=== PATIENT | male | born 1990 | race African-American/Black ===

== ENCOUNTER 2022-06-10 21:34 | Inpatient (IN) | payer OTHER, MEDICAID, SELFPAY ==
[2022-06-10] VITALS (8 sets, daily range): BP systolic 139–153; BP diastolic 88–125; PULSE 96–101; RESP 21–29; O2SAT 95–99
--- NOTE | ~2022-06-10 | CT_ITS ---
EXAMINATION: CTA brain carotid DATE: 06/10/2022 22:20 INDICATION: Left hemiparesis. TECHNIQUE: Computed tomographic angiography (CTA) of the head was performed without and with 100 mL O mnipaque-350 intravenous contrast. CTA of the neck was performed with intravenous contrast. Automated exposure control and iterative reconstruction technique were employed. The dose-length product was 1 779.51 mGy-cm. Maximum intensity projection and volume rendered 3D-reconstructions were created by rashad cannon technologist on a separate workstation. COMPARISON: Brain MRI 06/11/2022 FINDINGS: HEAD CTA: There is no intracranial hemorrhage, acute infarction, or abnormal intracranial mass lesion . The ventricles are normal in size. There is a mucous retention cyst in left maxillary sinus. The ma stoid air cells are normal. The orbits are normal. The vertebral arteries are codominant. There is no significant stenosis of basilar artery or the posterior cerebral arteries. There is no significant s tenosis of the intracranial internal carotid arteries or anterior cerebral arteries. There is total o cclusion of a right M2 middle cerebral artery with hyperdense thrombus. The anterior communicating ar danny is normal. The posterior communicating arteries are normal. There is no aneurysm. NECK CTA: The lung apices demonstrate mild atelectasis. There is mild mediastinal lymphadenopathy, li sherita reactive. There is no significant stenosis of the vertebral arteries. There is no visible plaque in the proximal internal carotid arteries. There is 0% stenosis of the proximal right internal carot id artery relative to normal distal artery lumen diameter (NASCET criteria). There is 0% stenosis of the proximal left internal carotid artery relative to normal distal artery lumen diameter. The bones are unremarkable. IMPRESSION: 1. Acute thrombosis of a right M2 middle cerebral artery. No infarct visible at this time. 2. 0% stenosis of the proximal internal carotid arteries relative to normal distal artery lumen diame ters (NASCET criteria). Reviewed, dictated and finalized at location E. BROILER OR FRY IMPRESSION: 1. Acute thrombosis of a right M2 middle cerebral artery. No infarct visible at this time. 2. 0% stenosis of the proximal internal carotid arteries relative to normal dis ivania artery lumen diameters (NASCET criteria).
--- NOTE | ~2022-06-10 | MR_ITS ---
EXAMINATION: MR brain/brain stem wo/w con DATE: 06/11/2022 08:41 INDICATION: Cerebral vascular accident. TECHNIQUE: Magnetic resonance imaging (MRI) of the brain and brainstem was performed without and with 20 mL MultiHance intravenous contrast. COMPARISON: Head CT 06/10/2022 FINDINGS: There is acute infarct involving the right insula and right frontoparietal region. There is no intracranial hemorrhage or abnormal mass lesion. The ventricles are normal in size. The orbits ar e normal. The paranasal sinuses are clear. The mastoid air cells are normal. IMPRESSION: 1. Acute infarct involving the right insula and right frontoparietal region. Reviewed, dictated and finalized at location E. ES' REGISTRY DIRECTOR
--- NOTE | ~2022-06-10 | XR_ITS ---
XR chest 1V DATE: 06/10/2022 22:16 INDICATION: Stroke. Left facial droop, slurred speech. TECHNIQUE: AP chest COMPARISON: None FINDINGS: There is enlargement of the cardiac silhouette which may be due to cardiomegaly/cardiac juanito malcolm and/or pericardial effusion. Mild infiltrate or atelectasis is suggested in the lower lung zones. The lungs otherwise appear clear . No pleural effusion or pulmonary vascular congestion or pneumothorax is detected. IMPRESSION: Enlarged cardiac silhouette which may be due to cardiomegaly, cardiomyopathy and/or peric ardial effusion Minimal infiltrate or atelectasis is suggested in the lower lung zones Reviewed, dictated and finalized at location A. PAPER INSPECTOR IMPRESSION: Enlarged cardiac silhouette which may be due to cardiomegaly, cardi omyopathy and/or pericardial effusion Minimal infiltrate or atelectasis is suggested in the lower lung zones
--- NOTE | ~2022-06-10 | US_ITS ---
US renal BI DATE: 06/11/2022 08:57 INDICATION: Acute renal insufficiency TECHNIQUE: Real-time and color flow imaging of the kidneys and urinary bladder COMPARISON: None FINDINGS: Right kidney measures approximately 9.9 cm length, left kidney 10.3 cm. No renal mass lesio n or hydronephrosis is evident. The urinary bladder is unremarkable. IMPRESSION: No significant abnormality Reviewed, dictated and finalized at Location A. Reviewed, dictated and finalized at location A. ICATIONS PROGRAMMER ANALYST IMPRESSION: No significant abnormality
--- NOTE | 2022-06-10 21:39 | ECG_ITS ---
Measurements Intervals [place] Rate: 94 P: 74 WY: 178 QRS: -58 QRSD: 130 T: 81 QT: 389 QTc: 487 Interpretive Statements SINUS RHYTHM LEFT ATRIAL ENLARGEMENT [-0.15mV P-WAVE IN V1/V2] LEFT ANTERIOR FASCICULAR BLOCK [QRS AXIS <= -45, QR IN I, RS IN II] POSSIBLE LEFT VENTRICULAR HYPERTROPHY [VOLTAGE CRITERIA PLUS LAE OR QRS WIDENING] POOR R-WAVE PROGRESSION NO PREVIOUS ECG AVAILABLE FOR COMPARISON Electronically Signed On 06-11-2022 8:27:51 NEEDLE GRADER by Ronna Burrows M.D.
--- NOTE | 2022-06-10 21:43 | ED.GENADULT ---
HPI - General Adult General Chief complaint: Neuro Symptoms/Deficit Stated complaint: left sided numbness History of Present Illness HPI narrative: 32-year-old male history of hypertension heart failure presenting ED with stroke-like symptoms. Last known normal was 9:00 p.m. tonight. Patient started to have left-sided facial droop slurred speech and numbness of the left hand. EMS was then called he was brought to the hospital. At this time the patient states that his left hand has and left portion of his face have decreased sensation. Patient's symptoms are improving. Related Data Home Medications Medication Instructions Recorded Confirmed aspirin 81 mg tablet,delayed mg 06/10/22 release furosemide 40 mg tablet mg 06/10/22 lisinopril 5 mg tablet mg 06/10/22 metoprolol succinate 25 mg mg PO 06/10/22 tablet,extended release 24 hr Allergies Allergy/AdvReac Type Severity Reaction Status Date / Time No Known Allergies Allergy Verified 06/10/22 21:35 [facility] Past Medical History Medical History CHF (congestive heart failure) Hypertension Social History Social History Social History: denies use of drugs alcohol tobacco. Exam Narrative: APPEARANCE: No apparent distress. Head: atraumatic. EYES: EOMI, NOSE: Atraumatic NECK: Trachea midline RESPIRATORY: No increased rate of breathing CARDIOVASCULAR: RRR, ABDOMINAL: Non-distended MUSCULOSKELETAl: No obvious deformities NEURO: Alert. Minor drift in the left arm, decreased sensation in the left face and left hand, some inattention to the left hand SKIN:: Warm, dry. Normal color PSYCHIATRIC: Normal affect NIH Stroke Scale/Score (NIHSS) from [email or web address] on 06/10/2022 All calculations should be rechecked by clinician prior to use RESULT SUMMARY: 4 points NIH Stroke Scale INPUTS: 1A: Level of consciousness ?> 1 = Arouses to minor stimulation 1B: Ask month and age ?> 0 = Both questions right 1C: 'Blink eyes' & 'squeeze hands' ?> 0 = Performs both tasks 2: Horizontal extraocular movements ?> 0 = Normal 3: Visual bobby ?> 0 = No visual loss 4: Facial palsy ?> 0 = Normal symmetry 5A: Left arm motor drift ?> 1 = Drift, but doesn't hit bed 5B: Right arm motor drift ?> 0 = No drift for 10 seconds 6A: Left leg motor drift ?> 0 = No drift for 5 seconds 6B: Right leg motor drift ?> 0 = No drift for 5 seconds 7: Limb Ataxia ?> 0 = No ataxia 8: Sensation ?> 1 = Mild-moderate loss: less sharp/more dull 9: Language/aphasia ?> 0 = Normal; no aphasia 10: Dysarthria ?> 0 = Normal 11: Extinction/inattention ?> 1 = Visual/tactile/auditory/spatial/personal inattention While initial stroke scale was 4, it rapidly improved to 1 with some left-sided sensory deficits. Course Vital Signs Vital signs: Vital Signs Pulse Rate 101 H 06/10/22 21:34 Respiratory Rate 22 H 06/10/22 21:34 Blood Pressure 153/96 H 06/10/22 21:34 Pulse Oximetry 98 06/10/22 21:34 Pulse Rate 101 H 06/10/22 21:34 Respiratory Rate 22 H 06/10/22 21:34 Blood Pressure 153/96 H 06/10/22 21:34 Pulse Oximetry 98 06/10/22 21:34 Medical Decision Making MDM Narrative Medical decision making narrative: -Presentation: 32-year-old male presenting to ED with stroke-like symptoms. The patient initially had left-sided facial droop, left arm weakness and left-sided numbness his symptoms had started to improve. He no longer has facial droop or weakness although he still has some numbness in the left arm. -DDX includes but is not limited to: CVA, vertebral artery dissection -Co-morbidities complicating care: hypertension, heart failure -Social determinants of health: -External Chart Review: none -Hx from independent Sources: none -Discussion of Management/Consultants: neurology-Carla Sparks - Hospitalist -Independent interpretati
[2022-06-10 22:04] LABS: Estimated CRCL calculation 91 ml/min; Estimated Glomerular Filt Rate > 60
[2022-06-10 22:32] LABS: Basophils Absolute Auto 0.1 K/mm3 (0.0-0.1); Basophils Percent Auto 0.9 % (0.2-1.2); Eosinophils Absolute Auto 0.1 K/mm3 (0-0.3); Eosinophils Percent Auto 1.6 % (0-4.4); Hematocrit 46.3 % (42.0-52.0); Hemoglobin 15.1 g/dL (14.0-18.0); Immature Granulocyte Absolute 0.02 K/mm3 (0.00-0.031); Immature Granulocyte Percent A 0.3 % (0-0.5); Lymphocytes Absolute Auto 2.67 K/mm3 (0.9-3.2); Lymphocytes Percent Auto 34.5 % (18.3-44.2); Mean Corpuscular HGB Conc 32.6 g/dl (32-36); Mean Corpuscular Hemoglobin 26.2 pg (26-34); Mean Corpuscular Volume 80.2 fl (80-100); Mean Platelet Volume 10.3 fl (7.4-10.4); Monocytes Absolute Auto 0.6 K/mm3 (0.1-0.6); Monocytes Percent Auto 7.2 % (2.6-8.5); Neutrophils Absolute Auto 4.3 K/mm3 (1.3-6.7); Neutrophils Percent Auto 55.5 % (45.5-73.1); Platelet Count Result 291 k/mm3 (150-375); Red Blood Count 5.77 M/mm3 (4.6-6.20); Red Cell Distribution Width 16.7 % (11.5-14.5); White Blood Count 7.7 K/mm3 (4.5-10.0)
[2022-06-10 22:43] LABS: INR 1.3; Prothrombin Time 15.8 Seconds (11.1-14.7)
[2022-06-10 22:44] LABS: Partial Thromboplastin Time 26.5 SECONDS (22.3-36.8)
[2022-06-10 22:45] LABS: Glucose Point of Care 146 mg/dl (65-105)
[2022-06-10 22:53] LABS: Alanine Aminotransferase 32 U/L (6-50); Albumin Level 3.5 g/dL (3.5-5.1); Alkaline Phosphatase 70 U/L (38-126); Anion Gap 7 mmol/L (8-16); Aspartate Amino Transferase 35 U/L (17-59); Bilirubin,Total 1.3 mg/dL (0.2-1.3); Blood Urea Nitrogen 18 mg/dL (9-20); Calcium 8.5 mg/dL (8.4-10.2); Carbon Dioxide 23 mmol/L (22-30); Chloride 102 mmol/L (98-107); Estimated CRCL calculation 85 ml/min; Estimated Glomerular Filt Rate > 60; Glucose 123 mg/dL (65-110); Potassium 3.4 mmol/L (3.4-5.0); Sodium 132 mmol/L (137-145)
[2022-06-10 22:54] LABS: Ethanol < 10 mg/dL (<10)
[2022-06-10 23:04] LABS: Troponin I < 0.012 ng/mL (0.000-0.034)
--- NOTE | 2022-06-10 23:13 | PM.IMHP ---
H&P: HPI History of Present Illness Date/Time: 06/10/22 23:13 Chief Complaint: Left-sided weakness Narrative: This is a 32-year-old male with past medical history significant for congestive heart failure. Patient presents to the emergency room due to left-sided weakness present in his left upper extremity. Patient has been his usual state of health although complains of worsening of bilateral lower extremity swelling had been to see his radio communication coordinator 2 days ago and no changes were made to his current medications. Patient denies any vision changes, any headaches, no nausea, no vomiting, no syncope, no near syncope, no lightheadedness, no vertigo, he had some speech disturbance as well at the time that this episode took place. Preliminary workup was significant for a CT angiogram of head and neck was reported by stat rad as: MCA territory acute infarct patient declined tPA and because his score in the NIHN was below 6 a stroke team from [facility] did not feel strong about intervention. Patient has been placed in observation for further evaluation management and treatment. Review of Systems Review of Systems: Left upper extremity weakness, speech disturbance. Constitutional: Constitutional: Denies chills, Denies fatigue, Denies fever(s), Denies lethargy, Denies malaise, Denies night sweats, Denies poor appetite, Denies weakness, Reports weight gain and Reports other (Worsening swelling of bilateral lower extremities) Eyes: Eyes: Denies change in vision ENT: Denies dysphagia, Denies vertigo, Denies dizziness and Denies odynophagia Cardiovascular: Cardiovascular: Denies chest pain, Denies irregular heart rhythm, Reports leg edema and Reports dyspnea on exertion Respiratory: Respiratory: Denies chest congestion, Denies cough, Denies pain on inspiration and Reports wheezing Gastrointestinal: Gastrointestinal: Denies abdominal pain, Denies dyspepsia, Denies heartburn, Denies diarrhea, Denies nausea and Denies vomiting Genitourinary: Genitourinary: Denies dysuria Musculoskeletal: Musculoskeletal: Denies back pain, Denies joint swelling and Denies muscle weakness Integumentary/Breasts: Skin/Breast: Denies rash Neurologic: Reports Abnormal speech present, Reports focal weakness (Left upper extremity) and Reports numbness (Left hand) Psychiatric: Psychiatric: Reports no additional psychiatric complaints and Reports as per HPI Endocrine: Endocrine: Denies cold intolerance, Denies flushing, Denies heat intolerance, Denies polyphagia, Denies polydipsia and Denies palpitations Hematologic/Lymphatic: Hematologic/Lymphatic: Reports no additional hematologic/lymphatic complaints and Reports as per HPI Allergic/Immunologic: Allergic/Immunologic: Reports no additional allergic/immunologic complaints and Reports as per HPI PMFSH Past Medical History Medical History CHF (congestive heart failure) Hypertension Social History Social History Social History: denies use of drugs alcohol tobacco. Meds Home Medications and Allergies Home Medications Medication Instructions Recorded Confirmed Type aspirin 81 mg tablet,delayed mg 06/10/22 History release furosemide 40 mg tablet mg 06/10/22 History lisinopril 5 mg tablet mg 06/10/22 History metoprolol succinate 25 mg mg PO 06/10/22 History tablet,extended release 24 hr Allergies Allergy/AdvReac Type Severity Reaction Status Date / Time No Known Allergies Allergy Verified 06/10/22 21:35 Vital Signs Vital Signs - 24 hr 06/10/22 21:34 06/10/22 22:37 06/10/22 22:31 Pulse Rate 101 H 101 H 96 Respiratory Rate 22 H 22 H 29 H Blood Pressure 153/96 H 153/96 H 140/88 Pulse Oximetry 98 99 97 06/10/22 21:35 Pulse Rate 101 H Respiratory Rate Blood Pressure Pulse Oximetry Exam Narrative: Patient is sitting in the stretcher Const:
[2022-06-10] MEDS: ASPIRIN 81 MG CHEWABLE TABLET 324 MG PO (23:27)
[2022-06-10 23:54] LABS: Amphetamine Screen Urine Negative (Negative); Barbiturate Screen Urine Negative (Negative); Benzodiazepines Screen Urine Negative (Negative); Cannabinoid Screen Urine Negative (Negative); Cocaine Screen Urine Negative (Negative); Methadone Screen Urine Negative (Negative); Opiate Screen Urine Negative (Negative); Phencyclidine Screen Urine Negative (Negative)
[2022-06-11] VITALS (16 sets, daily range): BP systolic 125–150; BP diastolic 86–124; PULSE 78–99; RESP 16–29; TEMP 36.1–37.1; O2SAT 95–100; BMI 38.4
[2022-06-11 00:08] LABS: Mucus Urine Rare /lpf; RBC Urine 0-2 /hpf (0-2); WBC Urine 0-3 /hpf
[2022-06-11 00:11] LABS: Appearance Urine Clear (Clear); Bilirubin Urine Negative (Negative); Blood Urine Trace-intact (Negative); Color Urine Yellow (Yellow); Glucose Urine UA Negative (Negative); Ketones Urine Negative (Negative); Leukocyte Esterase Ur Negative LEU/UL (Negative); Nitrate Urine Negative (Negative); Protein Urine 2+ mg/dL (Negative)
[2022-06-11 00:12] LABS: Add Urine Microscopic? YES
--- NOTE | 2022-06-11 01:45 | PC.NURSE ---
This patient, Ramón Santana, was admitted to Medical Room 253-01. Patient/family oriented to hospital policies and general routines including ID bracelet, bed and alarms, visiting hours, pain management, procedures, bathroom and other care routines, personal items, smoking policy, room service/diet, and visiting hours. Information on how to activate the Rapid Response Team has been discussed. Patient/Family are encouraged to report perceived risks to care and to ask questions if they do not understand what they are told or what they should do.
[2022-06-11] MEDS: FUROSEMIDE INJ 100 MG/10 ML VIAL 80 MG IV PUSH (02:30)
--- NOTE | 2022-06-11 08:21 | PM.IMPN ---
Progress Note: A&P Assessment and Plan (1) Acute CVA (cerebrovascular accident): Code(s): I63.9 - Cerebral infarction, unspecified Status: Acute Assessment and Plan: CTA head/neck show occlusion of M2 MCA and MRI brain with acute infarct to right insula and right frontoparietal region. Treated with ASA 325 mg PO x1 in ED. Continued on ASA 81 mg PO daily. Permissive hypertension first 24 hours, resume lisinopril and metoprolol in am. Monitor telemetry- SR with occasional asymptomatic runs of VT, no afib/flutter. Give plavix 300 mg PO x1, then start 75 mg daily. Continue lipitor 40 mg daily. LDL 93, HDL 41, triglycerides 101. Echo with bubble study pending. A1c 6.2% prediabetes. May benefit from starting metformin for management given acute stroke. apoB pending (2) CHF (congestive heart failure): Code(s): I50.9 - Heart failure, unspecified Status: Acute Assessment and Plan: Echocardiogram pending. Patient with some edema present in bilateral lower extremities Continue to diurese- give 40 mg IV lasix x1 and 60 mEQ KCl x1 PO. Daily intake and output Daily BMP Daily weights. Elevate BLE (3) Hypertension: Code(s): I10 - Essential (primary) hypertension Status: Chronic Assessment and Plan: Chronic, BP l131/86. May resume lisinopril and metoprolol in the morning. (4) APRIL (acute kidney injury): Code(s): N17.9 - Acute kidney failure, unspecified Status: Acute Assessment and Plan: BUN and creatinine elevated. Unknown prior baseline continue diuresis. Resume lisinopril in am. Daily intake and output Renal ultrasound negative. (5) Prediabetes: Code(s): R73.03 - Prediabetes Status: Acute Assessment and Plan: A1c 6.2%. Monitor serum glucose. diet and lifestyle modifications. Plan CODE STATUS: FULL CODE Disposition: from home. Discharge tomorrow if stable. Time Spent With Patient Time: 35 minutes of time spent reviewing chart, imaging, labs, patient assessment, developing plan of care, patient education and answering all patient and family questions. Subjective Date/time seen: 06/11/22 08:21 Interval history: Patient is a 32-year-old male with chronic congestive heart failure and hypertension who presented to the ED for evaluation of left upper extremity weakness and paresthesia. He also had some speech changes. In the ED NIH score was 6 but improved. CTA head and neck showed right M2 of MCA acute thrombus. No tPA was given as patient reportedly declined and [facility] stroke team reportedly did not feel strong about this intervention, per notes. Patient found sitting up in the chair. He reports some paresthesia is still present to his left arm, but weakness and speech changes have resolved. He denies new neuro symptoms. He does endorse persistent LE edema. His breathing is significantly improved. Review of Systems Review of Systems: All systems reviewed & are unremarkable except as noted in HPI and below Exam Narrative: General: No acute distress.? Well-developed adult male sitting up in bed. Mental Status/Psych: Awake, alert and oriented x4 with clear speech. Neutral mood and affect. Pleasant and cooperative. Skin: fair, warm, dry and intact without rashes or lesions. No open wounds. HEENT: Normocephalic. Sclera is non-icteric. EOM intact. PERRL. Grossly normal hearing. Oral mucosa pink and moist. Tongue midline. Oropharynx within normal limits. Neck: Supple. No JVD. Heart: S1 and S2 regular rate and rhythm. No murmurs, gallops, or rubs auscultated. Chest: Respirations even and unlabored. Lung sounds are clear to auscultation in all lobes bilaterally without wheezes, rhonchi, or rales. Abdomen: Soft, round and non-tender to palpation.? Bowel sounds present in all 4 quadrants. Extremities:? Grossly normal ROM all extremities. +2-3 BLE edema, no erythema or calf tenderness. Radial and dorsalis pedis pulses +2 bi
[2022-06-11 09:17] LABS: Glucose Point of Care 107 mg/dl (65-105)
[2022-06-11] MEDS: ASPIRIN 81 MG ENTERIC TABLET PO (09:27)
[2022-06-11] MEDS: ATORVASTATIN 40 MG TABLET PO (09:27)
[2022-06-11 09:38] LABS: Cholesterol 174 mg/dL (0-200); HDL Direct 41 mg/dL; Triglycerides 101 mg/dL (<150)
[2022-06-11 09:41] LABS: Alanine Aminotransferase 37 U/L (6-50); Albumin Level 4.2 g/dL (3.5-5.1); Alkaline Phosphatase 91 U/L (38-126); Anion Gap 11 mmol/L (8-16); Aspartate Amino Transferase 38 U/L (17-59); Blood Urea Nitrogen 21 mg/dL (9-20); Calcium 8.8 mg/dL (8.4-10.2); Carbon Dioxide 24 mmol/L (22-30); Chloride 105 mmol/L (98-107); Estimated CRCL calculation 85 ml/min; Estimated Glomerular Filt Rate > 60; Glucose 101 mg/dL (65-110); Potassium 3.4 mmol/L (3.4-5.0); Sodium 140 mmol/L (137-145)
[2022-06-11 09:43] LABS: Hemoglobin A1C 6.2 % (<5.7)
[2022-06-11 09:45] LABS: NT Pro B Type Natriuretic Pept 3950 pg/mL (19.9-100)
[2022-06-11 09:49] LABS: LDL Cholesterol Direct 92 mg/dL
--- NOTE | 2022-06-11 10:37 | WPDNEURCNPN ---
Assessment and Plan Assessment and plan (1) Acute CVA (cerebrovascular accident): Code(s): I63.9 - Cerebral infarction, unspecified Status: Acute (2) CHF (congestive heart failure): Code(s): I50.9 - Heart failure, unspecified Status: Acute Plan 1. Acute infarct involving the right insula and the right frontoparietal region 2 history of heart failure 3 hypertension 4 rule out the possibility of emboli either from the large vessel or from the heart will need the CTA in addition to the echocardiogram with bubble study in the meantime patient is being continued on aspirin 324 mg initially followed by 81 mg daily along with the atorvastatin 40 mg daily. Consult date: 06/11/22 HPI: Ramón Santana is a 32 year old maleAdmitted to the hospital through the emergency room with the possibility of the stroke-like symptoms in addition to the ongoing history of 1. Hypertension 2. Heart failure patient was last known normal was 9:00 p.m. on the day of admission to the ER he started having left facial droop along with the slurred speech and numbness of the left hand when EMS were called to the home and he was brought to the hospital. When taking aspirin 81 mg daily, furosemide 40 mg daily, lisinopril 5 mg daily, and metoprolol 25 mg daily. He carries the diagnosis of hypertension with congestive heart failure and gives no history of drugs or alcohol or tobacco use. Initial examination in the Emergency Room documented him to have no abnormal neurological finding except minor drift in the left upper extremity with decreased sensation left side of the face and left and and inattention to the left hand. His initial vital signs were with pulse of 101 blood pressure 153/96 respiration 22 and MRI today documented acute infarct involving the right insula and right frontoparietal region [facility] Past Medical History Medical History CHF (congestive heart failure) Hypertension Family History Family History (Updated 06/11/22 @ 02:52 by Tami Zeng RN) Other Unknown family medical history Social History Social History Social History: denies use of drugs alcohol tobacco. Smoking status: Never smoker Alcohol intake: never Substance use: never Lack of Transportation: No Lack of Food: Never True Current Housing: I Have Housing Concerned About Future Housing: No Difficulty Paying Gas/Electric Bills: No Difficulty Paying for Meds: YES Currently Unemployed: No Education: High School Diploma/GED Difficulty w/ Childcare or Family Care: No Spiritual care concerns: No Meds Home Medications and Allergies Home Medications Medication Instructions Recorded Confirmed Type aspirin 81 mg tablet,delayed 81 mg PO DAILY 06/10/22 06/11/22 History release furosemide 40 mg tablet 40 mg PO DAILY 06/10/22 06/11/22 History lisinopril 5 mg tablet 5 mg PO DAILY 06/10/22 06/11/22 History metoprolol succinate 25 mg 25 mg PO DAILY 06/10/22 06/11/22 History tablet,extended release 24 hr Allergies Allergy/AdvReac Type Severity Reaction Status Date / Time No Known Allergies Allergy Verified 06/10/22 21:35 Vital Signs Vital Signs - 24 hr 06/10/22 21:34 06/10/22 22:37 06/10/22 22:31 Temperature Pulse Rate 101 H 101 H 96 Respiratory Rate 22 H 22 H 29 H Blood Pressure 153/96 H 153/96 H 140/88 Pulse Oximetry 98 99 97 Oxygen Delivery 06/10/22 21:35 06/10/22 23:01 06/10/22 23:17 Temperature Pulse Rate 101 H 96 100 Respiratory Rate 28 H 22 H Blood Pressure 143/103 H 142/125 H Pulse Oximetry 95 95 Oxygen Delivery 06/10/22 23:30 06/10/22 23:45 06/11/22 00:00 Temperature Pulse Rate 98 98 99 Respiratory Rate 25 H 21 H 21 H Blood Pressure 139/103 H 140/101 H 130/115 H Pulse Oximetry 98 98 100 Oxygen Delivery 06/11/22 00:16 06/11/22 00:47 06/11/22 01:01 Te
[2022-06-11 10:51] LABS: Folic Acid > 20.0 ng/mL (2.76->20)
[2022-06-11 11:44] LABS: Glucose Point of Care 193 mg/dl (65-105)
[2022-06-11] MEDS: POTASSIUM CHLORIDE 20 MEQ TABLET 60 MEQ PO (16:41)
[2022-06-11] MEDS: CLOPIDOGREL BISULFATE 300 MG TABLET PO (16:42)
[2022-06-11] MEDS: FUROSEMIDE INJ 40 MG/4 ML VIAL IV PUSH (16:42)
[2022-06-11 16:59] LABS: Glucose Point of Care 143 mg/dl (65-105)
[2022-06-12] VITALS (8 sets, daily range): BP systolic 107–125; BP diastolic 79–89; PULSE 81–94; RESP 16–20; TEMP 36.7; O2SAT 99–100
--- NOTE | 2022-06-12 | ECHO_ITS ---
Patient Info Name: Ramón Santana Age: 32 years : 1990 Gender: Male Ht: 69 in Wt: 260 lbs BSA: 2.45 m2 HR: 94 bpm BP: 136 / 90 mmHg Heart Rhythm: Sinus Rhythm Technical Quality: Poor Exam Date: 06/12/2022 3:06 PM Exam Location: [facility] Pulmonary Exam Room: 253 Patient Status: Inpatient Admit Date: 06/10/2022 Staff Ordering Physician: Cassie Espinal APRN [employer] Machine Operator: Heather Iniguez RDCS Attending Provider: Esdras Aguirre MD Referring Physician: Teddy PARIKH; Exam Type: CA echo dop bubble study w con Study Info Indications - stroke symptoms edema chf Complete two-dimentional, color flow and Doppler transthoracic echocardiogram is performed with agitated saline and with contrast to opacify the left ventricle and to improve the delineation of the left ventricle endocardial borders. Contrast/Agitated Saline Contrast/Ag. Saline: Definity Amount: 4.00 ml Administered By: Heather Iniguez [facility] Existing IV Access: Yes IV Access Condition: patent with no signs of infiltration Reason for Poor Study: patient body habitus Summary 1. Severe ventricular enlargement. Normal wall thickness. Severe global hypokinesis with estimated ejection fraction of 10-15%. No segmental wall motion abnormalities. Grade 2 diastolic dysfunction is present. 2. Left atrial chamber dimension is severely enlarged. 3. Right atrial chamber dimension is moderately enlarged. 4. There is trace mitral valve regurgitation. 5. There is mild tricuspid valve regurgitation. 6. Mild pulmonary hypertension, estimated pulmonary arterial systolic pressure is 39 mmHg. 7. There is moderate pulmonic regurgitation. 8. No evidence of intracardiac shunting during normal respiration and Valsalva with IV saline bubble contrast. 9. Normal sinus rhythm. 10. Technically difficult study. IV definity echo contrast used. Of note, there was reflux of the contrast into the inferior vena cava, suggestions for cardiac function. Left Ventricle Left ventricular chamber dimension is severely enlarged. Left ventricular systolic function is severely reduced, estimated at 15-20%. There is no increased left ventricular wall thickness. Left ventricular septal wall motion is normal. The left ventricular diastolic function is grade II diastolic dysfunction. Right Ventricle Right ventricular chamber dimension is normal. Right ventricular systolic function is normal. Left Atria Left atrial chamber dimension is severely enlarged. Right Atria Right atrial chamber dimension is moderately enlarged. Aortic Valve The aortic valve is trileaflet. There is no aortic valve sclerosis. There is no aortic valve stenosis. There is no aortic valve regurgitation. Pulmonic Valve The pulmonic valve is normal. There is no pulmonic valve stenosis. There is moderate pulmonic regurgitation. Mitral Valve The mitral valve has thickened leaflets. There is no mitral valve stenosis. There is trace mitral valve regurgitation. Tricuspid Valve The tricuspid valve leaflets are normal. There is no significant tricuspid valve stenosis. There is mild tricuspid valve regurgitation. Mild pulmonary hypertension, estimated pulmonary arterial systolic pressure is 39 mmHg. Pericardium/Pleural The pericardium appears normal. There is no pericardial effusion. Inferior Vena Cava Normal inferior vena cava with >50% collapse upon inspiration consiste
[2022-06-12 05:12] LABS: Anion Gap 6 mmol/L (8-16); Blood Urea Nitrogen 17 mg/dL (9-20); Calcium 8.6 mg/dL (8.4-10.2); Carbon Dioxide 28 mmol/L (22-30); Chloride 103 mmol/L (98-107); Estimated CRCL calculation 98 ml/min; Estimated Glomerular Filt Rate > 60; Glucose 104 mg/dL (65-110); Phosphorus 4.2 mg/dL (2.5-4.5); Potassium 3.8 mmol/L (3.4-5.0); Sodium 137 mmol/L (137-145)
[2022-06-12] MEDS: ASPIRIN 81 MG ENTERIC TABLET PO (08:22)
[2022-06-12] MEDS: CLOPIDOGREL BISULFATE 75 MG TABLET PO (08:22)
[2022-06-12] MEDS: ATORVASTATIN 40 MG TABLET PO (08:22)
[2022-06-12] MEDS: lisinopriL 5 MG TABLET PO (08:22)
[2022-06-12] MEDS: METOPROLOL SUCCINATE EXT REL 25 MG TABCR PO (08:22)
[2022-06-12 08:28] LABS: Glucose Point of Care 124 mg/dl (65-105)
[2022-06-12] MEDS: POTASSIUM CHLORIDE 20 MEQ TABLET 40 MEQ PO (08:48)
[2022-06-12] MEDS: FUROSEMIDE 40 MG TABLET PO (08:48)
--- NOTE | 2022-06-12 11:06 | WPDNEUROPN ---
Progress Note: A&P Assessment and Plan (1) Acute CVA (cerebrovascular accident): Code(s): I63.9 - Cerebral infarction, unspecified Status: Acute (2) CHF (congestive heart failure): Code(s): I50.9 - Heart failure, unspecified Status: Acute (3) Hypertension: Code(s): I10 - Essential (primary) hypertension Status: Chronic (4) Prediabetes: Code(s): R73.03 - Prediabetes Status: Acute Plan Mr. Santana is a 32 year old male with a history of CHF, HTN, prediabetes, and HLD presenting due to acute stroke. Found to have R MCA territory stroke with R M2 occlusion. Etiology of stroke is unclear -- cryptogenic at this point. Cardiogenic etiology is a possibility given history. There was no evidence of atherosclerotic large vessel disease on vessel imaging. - He is currently on aspirin and Plavix x 6 weeks. Unclear how beneficial having Plavix onboard will be since there is no significant large vessel disease, but reasonable to continue at this point while we are working up etiology - Given his age, I have order hypercoagulability labs - Continue Lipitor 40mg daily - Prediabetes and HTN being managed by hospitalist team - Surface echocardiogram is pending -- if unrevealing, he will need MIGUEL +/- Loop recorder. He does have a Distributor Operator at [facility] who he can follow-up with Subjective Date/time seen: 06/12/22 11:06 Interval history: Mr. Santana is a 32 year old male with a history of CHF currently admitted for acute stroke. Patient was found to have R insula and right frontoparietal infarct as well as M2 occlusion noted on CTA brain/carotid. Patient reports he was diagnosed with CHF last year. The etiology of his cardiac condition is unknown per patient. He denies a family history of early cardiac disease, early stroke, recurrent miscarriages, or any other clotting disorders. He does have hypertension and A1c was consistent with prediabetes. He does not smoke. He has been started on Aspirin and Plavix as well as Lipitor 40mg (his LDL was 93). He denies any complaints today. His echocardiogram is pending. Review of Systems Review of Systems: All systems reviewed & are unremarkable except as noted in HPI and below Exam Const: General: comfortable and no acute distress Resp: Effort & Inspection: normal respiratory effort Skin: General skin exam: normal color Neuro: Other: awake, alert, speech is normal, moving all extremities antigravity, able to ambulate without difficulty. Psych: Mental Status: mental status grossly normal Affect: normal affect Objective Data Vital Signs Vital Signs: Vital Signs - 24 hr 06/11/22 12:03 06/11/22 14:14 06/11/22 16:01 Temperature 37.1 C Pulse Rate 81 87 94 Respiratory Rate 16 Blood Pressure 131/86 Pulse Oximetry 97 Oxygen Delivery 06/11/22 20:00 06/11/22 20:00 06/11/22 21:19 Temperature 37.1 C Pulse Rate 91 94 94 Respiratory Rate 16 16 Blood Pressure 131/86 Pulse Oximetry 97 97 Oxygen Delivery Room Air Room Air 06/11/22 22:00 06/12/22 00:00 06/12/22 04:00 Temperature 36.1 C L Pulse Rate 93 94 85 Respiratory Rate 18 Blood Pressure 136/90 Pulse Oximetry 95 Oxygen Delivery 06/12/22 06:00 06/12/22 08:22 06/12/22 08:00 Temperature 36.7 C Pulse Rate 93 94 90 Respiratory Rate 20 Blood Pressure 125/89 Pulse Oximetry 99 Oxygen Delivery 06/12/22 08:28 Temperature Pulse Rate Respiratory Rate Blood Pressure Pulse Oximetry Oxygen Delivery Room Air Intake/Output Intake/Output: Intake & Output 06/09/22 06/10/22 06/11/22 06/12/22 23:59 23:59 23:59 23:59 Intake Total 1190 940 Output Total 6100 Balance -4910 940 Meds/Results Medications: Active Medications Generic Name Dose Route Start Last Admin Trade Name Freq PRN Reason Stop Dose Admin Aspirin 81 mg 06/11/22 09:00 06/12/22 08:22 Aspirin 81 Mg Enteric Tablet PO [facility]
[2022-06-12 12:52] LABS: Glucose Point of Care 141 mg/dl (65-105)
[2022-06-12] MEDS: PERFLUTREN LIPID MICROSPHERES 1.5 ML VIAL DILUTED TO 10 ML TOTAL VOLUME IV PUSH (15:25)
--- NOTE | 2022-06-12 16:11 | PM.DS ---
DS: Admitting Diagnosis Discharge Date 06/12/22 1615 Admitting Diagnosis Acute CVA (cerebrovascular accident) CHF (congestive heart failure), unspecified Essential (primary) hypertension APRIL (acute kidney injury) DS: Discharge Diagnosis Discharge Diagnosis (1) Acute CVA (cerebrovascular accident): Code(s): I63.9 - Cerebral infarction, unspecified Status: Acute (2) CHF (congestive heart failure): Qualifiers: Heart failure type: combined systolic and diastolic Heart failure chronicity: acute on chronic Qualified Code(s): I50.43 - Acute on chronic combined systolic (congestive) and diastolic (congestive) heart failure Code(s): I50.9 - Heart failure, unspecified Status: Acute (3) Hypertension: Qualifiers: Hypertension type: primary hypertension Qualified Code(s): I10 - Essential (primary) hypertension Code(s): I10 - Essential (primary) hypertension Status: Chronic (4) APRIL (acute kidney injury): Code(s): N17.9 - Acute kidney failure, unspecified Status: Acute (5) Prediabetes: Code(s): R73.03 - Prediabetes Status: Acute DS: Summary Hospital Course Reason for hospitalization: Left-sided weakness Hospital Course: (1) Acute CVA (cerebrovascular accident): MRI brain with acute infarct to right insula and right frontoparietal region. CTA head and neck found to have R MCA territory stroke with R M2 occlusion. Etiology of stroke is unclear -- cryptogenic at this point. Cardiogenic etiology is a possibility given history. There was no evidence of atherosclerotic large vessel disease on vessel imaging. Treated with ASA 325 mg PO x1 in ED. Continued on ASA 81 mg PO daily. Permissive hypertension first 24 hours, resume lisinopril and metoprolol in am. Telemetry showed SR with occasional asymptomatic runs of VT, no afib/flutter. Given plavix 300 mg PO x1, then start 75 mg daily x 6 weeks. Started on lipitor 40 mg daily. LDL 93, HDL 41, triglycerides 101. Echo with bubble study pending at discharge, however, found to be negative for shunt. A1c 6.2% prediabetes. May benefit from starting metformin or other medication, such as SGLT-2 with concommitant CHF, for management given acute stroke. apoB drawn and pending at discharge. Coagulopathy panel drawn and pending at discharge. Counseled to follow up with Neurology outpatient. (2) CHF (congestive heart failure), acute on chronic combined diastolic and systolic Echocardiogram pending at discharge, but found to be significant for systolic LV dysfunction EF 10-15%, dilated LA & RA, grade 2 diastolic dysfunction. Patient with edema present in bilateral lower extremities. Diuresed with 40 mg IV lasix and potassium supplemented PO. BUN and creatinine elevated on admission and likely secondary to pre-renal hypervolemia from CHF exacerbation. Discharged on furosemide 40 mg PO BID and counseled on low salt, heart healthy diet. Patient counseled to follow up with his own [facility] outpatient. (3) Hypertension Chronic, BP 131/86. Resumed lisinopril and metoprolol in the morning. (4) APRIL (acute kidney injury) BUN and creatinine elevated on admission. Unknown prior baseline but improved with diuresis. Continued on lisinopril after 24 hours of permissive hypertension. Renal ultrasound negative. (5) Prediabetes: A1c 6.2%. Monitor serum glucose. Diet and lifestyle modifications discussed. ? Patient's left arm weakness and paresthesia was improving at discharge. He had full motor activity to his left arm, but mild paresthesia. Respiratory symptoms and LE edema also improved on discharge. He was discharged home in stable condition. Status at Discharge Cognitive/behavioral status at discharge: Alert and oriented x3 Functional status at discharge: independent ambulation Overall status at discharge: patient is progressing back to baseline Time Spent with Patient Time attestation: Total time spent providing and/or coordi
[2022-06-14 21:20] LABS: Antithrombin III Activity 132 % normal (80-135)
[2022-06-15 10:34] LABS: Apolipoprotein B 92 mg/dL (<90)
[2022-06-15 19:34] LABS: Homocysteine 15.6 umol/L (<11.4)
[2022-06-18 20:32] LABS: Factor V (Leiden) Mutation NEGATIVE
[2022-06-20 11:35] LABS: Anti Cardio Antibody IgM <2.0; Anti Cardiolipin Antibody IgA <2.0; Anti Cardiolipin Antibody IgG <2.0; PS/PT AB IgM 25
[2022-06-20 11:38] LABS: Phosphatidylserine IgG <9
== END 2022-06-12 16:50 | disposition home or self-care (01) | DRG 65 ==
LOC: ANHED 23:16 → ANH2MED 06-11 01:47
PROVIDERS: Student in an Organized Health Care Education/Training Program; Admitting Provider Internal Medicine; Emergency Provider Emergency Medicine; Visit Provider Nurse Practitioner Family
DX: I63.311 Cerebral infarction due to thrombosis of right middle cerebral artery (principal); G81.94 Hemiplegia, unspecified affecting left nondominant side; N17.9 Acute kidney failure, unspecified; R29.810 Facial weakness; R47.81 Slurred speech; R20.0 Anesthesia of skin; R73.03 Prediabetes; I11.0 Hypertensive heart disease with heart failure; I50.9 Heart failure, unspecified; R29.706 NIHSS score 6
CPT/HCPCS: 36415; 70496; 70498; 70553; 71045; 76775; 80048; 80053; 80061; 80307; 81001; 81240; 81241; 82172; 82607; 82746; 82948; 83036; 83090; 83735; 83880; 84100; 84484; 85025; 85300; 85303; 85306; 85610; 85730; 86146; 93005; 96375; 99285; A9270; A9577; C8929; J1940; Q9957; Q9967

== ENCOUNTER 2024-01-01 06:29 | Inpatient (IN) | payer OTHER, SELFPAY ==
[2024-01-01] VITALS (12 sets, daily range): BP systolic 110–137; BP diastolic 77–96; PULSE 95–109; RESP 14–20; TEMP 36.6–36.9; O2SAT 92–100; BMI 35.2
--- NOTE | ~2024-01-01 | XR_ITS ---
Clinical Indication: Hemoptysis PA and lateral views of the chest: Comparison: 06/10/2022 Findings: The lungs are clear, without evidence of focal consolidation or pleural effusion. Cardiome diastinal silhouette is stable. Bones and soft tissues are unremarkable. Impression: Clear lungs. Stable cardiomegaly. Reviewed, dictated and finalized at location . Impression: Clear lungs. Stable cardiomegaly.
--- NOTE | ~2024-01-01 | NM_ITS ---
EXAMINATION: NM lung vent and perfusion DATE: 01/01/2024 16:03 INDICATION: Hemoptysis. TECHNIQUE: 22.3 mCi Xenon-133 was given for ventilation images. 5.5 mCi Tc-99m MAA was administered i ntravenously for perfusion images. Scintigraphic images of the chest were obtained. COMPARISON: Chest 2 views 01/01/2024 FINDINGS: The perfusion images demonstrate large defects involving the left lower lobe. There is a moderate-siz ed defect in left upper lobe. The ventilation images demonstrate matched defects in left lung. IMPRESSION: 1. Intermediate probability for pulmonary embolism. Reviewed, dictated and finalized at location A.
--- NOTE | 2024-01-01 06:45 | ECG_ITS ---
Test Date: 2024-01-01 06:50:33 Measurements Intervals [place] Rate: 109 P: 61 UT: 156 QRS: -56 QRSD: 131 T: 114 QT: 364 QTc: 490 Interpretive Statements SINUS TACHYCARDIA LEFT ATRIAL ENLARGEMENT LEFT BUNDLE BRANCH BLOCK ABNORMAL ECG No previous ECG available for comparison Electronically Signed On 01-01-2024 10:34:13 CDT by Dustin Alvarez D.O.
[2024-01-01 07:01] LABS: Basophils Absolute Auto 0.1 K/mm3 (0.0-0.1); Basophils Percent Auto 0.6 % (0.2-1.2); Eosinophils Absolute Auto 0.1 K/mm3 (0-0.3); Hematocrit 47.6 % (42.0-52.0); Hemoglobin 15.3 g/dL (14.0-18.0); Immature Granulocyte Absolute 0.01 K/mm3 (0.00-0.031); Immature Granulocyte Percent A 0.1 % (0-0.5); Lymphocytes Absolute Auto 1.96 K/mm3 (0.9-3.2); Lymphocytes Percent Auto 25.2 % (18.3-44.2); Mean Corpuscular HGB Conc 32.1 g/dl (32-36); Mean Corpuscular Hemoglobin 26.9 pg (26-34); Mean Corpuscular Volume 83.8 fl (80-100); Mean Platelet Volume 10.2 fl (7.4-10.4); Monocytes Absolute Auto 0.5 K/mm3 (0.1-0.6); Monocytes Percent Auto 6.2 % (2.6-8.5); Neutrophils Absolute Auto 5.2 K/mm3 (1.3-6.7); Neutrophils Percent Auto 66.9 % (45.5-73.1); Platelet Count Result 236 k/mm3 (150-375); Red Blood Count 5.68 M/mm3 (4.6-6.20); Red Cell Distribution Width 15.8 % (11.5-14.5); White Blood Count 7.8 K/mm3 (4.5-10.0)
[2024-01-01 07:11] LABS: Chloride 99 mmol/L (98-107); Potassium 3.5 mmol/L (3.4-5.0); Sodium 135 mmol/L (137-145)
[2024-01-01 07:12] LABS: Alanine Aminotransferase 40 U/L (6-50); Albumin Level 3.9 g/dL (3.5-5.1); Alkaline Phosphatase 106 U/L (38-126); Anion Gap 12 mmol/L (4-12); Aspartate Amino Transferase 36 U/L (17-59); Bilirubin,Total 2.3 mg/dL (0.2-1.3); Blood Urea Nitrogen 17 mg/dL (9-20); Calcium 8.9 mg/dL (8.4-10.2); Carbon Dioxide 24 mmol/L (22-30); Estimated CRCL calculation 69 ml/min; Estimated Glomerular Filt Rate 60; Glucose 132 mg/dL (65-110)
[2024-01-01 07:20] LABS: INR 1.3
[2024-01-01 07:21] LABS: Partial Thromboplastin Time 28.1 Seconds (22.3-36.8)
[2024-01-01 07:24] LABS: NT Pro B Type Natriuretic Pept 4150 pg/mL (19.9-100); Troponin I 0.322 ng/mL (0.000-0.034)
--- NOTE | 2024-01-01 07:30 | ED.GENADULT ---
HPI - General Adult General Chief complaint: Recheck/Abnormal Lab/Rx Stated complaint: edema x mos Time Seen by Provider: 01/01/24 07:00 History of Present Illness HPI narrative: 33-year-old male with history of prior CVA, CHF EF 10-15%, presents here with increasing lower extremity edema and some mild shortness of breath/chest tightness for the last few months. Has been taking his medications as prescribed including his Bumex and Entresto. Related Data Home Medications Medication Instructions Recorded Confirmed aspirin 81 mg tablet,delayed 81 mg PO DAILY 06/10/22 06/11/22 release lisinopril 5 mg tablet 5 mg PO DAILY 06/10/22 06/11/22 metoprolol succinate 25 mg 25 mg PO DAILY 06/10/22 06/11/22 tablet,extended release 24 hr Allergies Allergy/AdvReac Type Severity Reaction Status Date / Time No Known Allergies Allergy Verified 01/01/24 06:42 Review of Systems Review of Systems: All systems reviewed & are unremarkable except as noted in HPI and below PMFSH Past Medical History Medical History (Updated 01/01/24 @ 07:45 by Sonia Hirsch MD) CHF (congestive heart failure) Hypertension Family History Family History (Updated 06/11/22 @ 02:52 by Tami Zeng RN) Other Unknown family medical history Social History Social History Social History: denies use of drugs alcohol tobacco. Smoking status: Never smoker Alcohol intake: never Substance use: never Lack of Transportation: No Lack of Food: Never True Current Housing: I Have Housing Concerned About Future Housing: No Difficulty Paying Gas/Electric Bills: No Difficulty Paying for Meds: YES Currently Unemployed: No Education: High School Diploma/GED Difficulty w/ Childcare or Family Care: No Spiritual care concerns: No Exam Narrative: EXAMINATION OF ORGAN SYSTEMS/BODY AREAS: Constitutional: Vital signs per nursing GENERAL:[No acute distress, non-toxic appearing.] HEAD: Normal with no signs of head trauma. EYES: EOMI, conjunctiva normal ENT: Hearing grossly intact LUNGS: Nonlabored breathing. HEART: [Regular rate and rhythm] ABD: [Soft], slightly distended EXT: Normal range of motion, lower extremity edema SKIN: [No rashes or lesions.] NEURO: [Alert and oriented x 3. No gross focal sensory or strength deficits.] PSYCH: Normal affect Course Vital Signs Vital signs: Vital Signs Temperature 98.3 F 01/01/24 06:32 Pulse Rate 107 H 01/01/24 06:32 Respiratory Rate 18 01/01/24 06:32 Blood Pressure 137/96 H 01/01/24 06:32 Pulse Oximetry 99 01/01/24 06:32 Oxygen Delivery Room Air 01/01/24 06:32 Temperature 98.3 F 01/01/24 06:32 Pulse Rate 107 H 01/01/24 07:24 Respiratory Rate 18 01/01/24 07:24 Blood Pressure 114/88 01/01/24 07:24 Pulse Oximetry 100 01/01/24 07:24 Oxygen Delivery Room Air 01/01/24 06:32 Medical Decision Making MDM Narrative Medical decision making narrative: 53-year-old male with history of CHF EF 10-15%, here with increasing lower extremity edema and some slight chest tightness for the the last few months. On exam he is in no distress, he does have lower extremity edema, labs concerning for elevated BNP, troponin, slightly elevated creatinine. EKG on my independent interpretation shows sinus tachycardia rate 109, CO 156, QRS 131, QTC 490, no significant ST elevations or signs of acute arrhythmia or ischemia. Patient agreeable to admission for diuresis, I did also discuss the case with Cardiology given his elevated troponin, he does not have any lung significant chest pain and no obvious signs of FREDY on EKG I do not think he requires emergent catheterization at this time and I suspect the troponin likely from the of the volume overload. Discussed with hospitalist for admission pain Vital Signs Vital Signs: Vital Signs Temperature 98.3 F 01/01/24 06:32 Pulse Rate 1
[2024-01-01] MEDS: FUROSEMIDE INJ 40 MG/4 ML VIAL IV PUSH (08:09)
--- NOTE | 2024-01-01 09:31 | ECG_ITS ---
Test Date: 2024-01-01 09:45:46 Measurements Intervals [place] Rate: 97 P: 80 NV: 194 QRS: -54 QRSD: 136 T: 116 QT: 391 QTc: 497 Interpretive Statements SINUS RHYTHM LEFT ATRIAL ENLARGEMENT LEFT BUNDLE BRANCH BLOCK BASELINE ARTIFACT- I, III, AVR, AVL, V1 ABNORMAL ECG Compared to ECG 01/01/2024 06:50:33 HEART RATE HAS DECREASED Electronically Signed On 01-01-2024 10:47:18 CDT by Dustin Alvarez D.O.
[2024-01-01 10:52] LABS: Troponin I 0.229 ng/mL (0.000-0.034)
--- NOTE | 2024-01-01 11:50 | ADMGEN ---
This patient, Ramón Santana, was admitted to IMU Room 213-01. Patient/family oriented to hospital policies and general routines including ID bracelet, bed and alarms, visiting hours, pain management, procedures, bathroom and other care routines, personal items, smoking policy, room service/diet, and visiting hours. Information on how to activate the Rapid Response Team has been discussed. Patient/Family are encouraged to report perceived risks to care and to ask questions if they do not understand what they are told or what they should do.
[2024-01-01 12:54] LABS: Troponin I 0.245 ng/mL (0.000-0.034)
--- NOTE | 2024-01-01 13:01 | PM.IMHP ---
H&P: HPI History of Present Illness Date/Time: 01/01/24 13:01 Chief Complaint: Lower Extremity Swelling, Hemoptysis Narrative: 33 y/o M presents here with bilateral lower extremity swelling and hemoptysis with PMH of CHF and hypertension. The patient presents here from home via EMS for further evaluation of bilateral lower extremity swelling and hemoptysis. Patient has a known history of congestive heart failure with last documented EF of 10-15% in May. Unclear etiology for patient's HF, reports he has had LE swelling since he was a teen. He reports he has been experiencing worsening bilateral lower extremity swelling for the past 2 months. Endorsing intermittent labored breathing and worsens occasionally when he lasts flat. Patient follows with [facility] for his cardiac care, last saw them approximately 1 year ago. Patient is currently on Bumex and Entresto, reports compliance with medications. Due to development of hemoptysis approximately 2-3 days ago, patient sought care today. Patient describes the hemoptysis as clear with blood clots. Patient denies recent long travel, recent surgery, recent immobility, or oncology history. Patient does work for [employer], reports he is frequently in the car for extended periods but ambulates between. Patient endorses associated chest tightness that he describes it upper left chest that seems positional and feels more musculoskeletal to patient. Denies associated fever, chills, body aches, rhinorrhea, or fatigue. Initial VS at presentation: 98.3? F, HR 107, RR 18, 137/96, and 99% on RA. ED workup showed: No leukocytosis, no anemia, INR 1.3, sodium 135, creatinine 1.6 and GFR 60 (previously 1.2 and GFR >60 on 06/12/2022), initial troponin 0.322, and BNP 4150. CXR showed clear lungs and stable cardiomegaly. Review of Systems Review of Systems: All systems reviewed & are unremarkable except as noted in HPI and below PMFSH Past Medical History Medical History CHF (congestive heart failure) Hypertension Prediabetes Family History Family History Other Unknown family medical history Social History Social History Social History: denies use of drugs alcohol tobacco. Smoking status: Never smoker Alcohol intake: never Substance use: never Do You Feel Safe in your Home?: Yes Lack of Transportation: No Lack of Food: Never True Current Housing: I Have Housing Concerned About Future Housing: No Difficulty Paying Gas/Electric Bills: No Difficulty Paying for Meds: No Currently Unemployed: No Education: High School Diploma/GED Difficulty w/ Childcare or Family Care: No Spiritual care concerns: No Meds Home Medications and Allergies Home Medications Medication Instructions Recorded Confirmed Type bumetanide 1 mg tablet 1 mg PO BID 01/01/24 01/01/24 History sacubitril 24 mg-valsartan 26 mg 1 tablet PO BID 01/01/24 01/01/24 History tablet (Entresto) Allergies Allergy/AdvReac Type Severity Reaction Status Date / Time No Known Allergies Allergy Verified 01/01/24 06:42 Vital Signs Vital Signs - 24 hr 01/01/24 06:32 01/01/24 07:24 01/01/24 07:24 Temperature 98.3 F Pulse Rate 107 H 107 H Respiratory Rate 18 18 18 Blood Pressure 137/96 H 114/88 Pulse Oximetry 99 100 100 Oxygen Delivery Room Air 01/01/24 08:12 01/01/24 09:49 01/01/24 11:39 Temperature 98.0 F 98.3 F 98.0 F Pulse Rate 99 100 97 Respiratory Rate 20 20 20 Blood Pressure 125/89 120/77 110/87 Pulse Oximetry 100 98 100 Oxygen Delivery Exam Const: General: comfortable and no acute distress Other: , male, nontoxic appearance HENMT: Face/Nose/Sinus: Normal nares present Mouth: Yes moist mucous membranes Eyes: General: appearance normal, both eyes and all related s
--- NOTE | 2024-01-01 13:20 | ECHO_ITS ---
Patient Info Name: Ramón Santana Age: 33 years : 1990 Gender: Male Ht: 68 in Wt: 231 lbs BSA: 2.28 m2 HR: 97 bpm BP: 110 / 87 mmHg Heart Rhythm: Sinus Rhythm, Tachycardia Technical Quality: Fair Exam Date: 01/01/2024 2:41 PM Exam Location: Echo Lab Patient Status: Inpatient Admit Date: 01/01/2024 Staff Ordering Physician: Christiane Agosto APRN Correspondence School Teacher: Theo Zarate RDCS Attending Provider: Jimmy eVga MD Referring Physician: Triny MINER; Exam Type: CA echo dop color flow w con Study Info Indications I50.20 - Unspecified systolic (congestive) heart failure - Elevated Troponins Complete two-dimensional, color flow and Doppler transthoracic echocardiogram is performed with contrast to opacify the left ventricle and to improve the deliniation of the left ventricle endocardial borders. Contrast/Agitated Saline Contrast/Ag. Saline: Definity Amount: 5.00 ml Existing IV Access: Yes IV Access Condition: patent with no signs of infiltration Summary 1. Left ventricular chamber dimension is severely enlarged. 2. Left ventricular systolic function is severely reduced, estimated at <15%. 3. The left ventricular diastolic function is grade III diastolic dysfunction. 4. LV thrombus noted on the mid interventricular septum, measures 2.5cm x 0.9cm. LV laminar apical thrombus noted as well. 5. Right ventricular chamber dimension is normal. 6. Right ventricular systolic function is reduced. 7. Left atrial chamber dimension is moderately enlarged. 8. Right atrial chamber dimension is moderately enlarged. 9. There is mild to moderate mitral valve regurgitation. Severity of regurgitation may be underestimated due to eccentricity of the jet. 10. There is moderate to severe tricuspid valve regurgitation. Severity of regurgitation may be underestimated due to eccentricity of the jet. 11. There is mild to moderate pulmonic regurgitation. Left Ventricle LV thrombus noted on the mid interventricular septum, measures 2.5cm x 0.9cm. LV laminar apical thrombus noted as well. Left ventricular chamber dimension is severely enlarged. Left ventricular systolic function is severely reduced, estimated at <15%. There is no increased left ventricular wall thickness. The left ventricular diastolic function is grade III diastolic dysfunction. Right Ventricle Right ventricular chamber dimension is normal. Right ventricular systolic function is reduced. Left Atria Left atrial chamber dimension is moderately enlarged. Right Atria Right atrial chamber dimension is moderately enlarged. Atrial Septum Intact interatrial septum visualized by color flow imaging. Aortic Valve The aortic valve is trileaflet. There is no aortic valve stenosis. There is no aortic valve regurgitation. Pulmonic Valve The pulmonic valve is not well visualized. There is mild to moderate pulmonic regurgitation. Mitral Valve There is mild to moderate mitral valve regurgitation. Severity of regurgitation may be underestimated due to eccentricity of the jet. Tricuspid Valve There is moderate to severe tricuspid valve regurgitation. Severity of regurgitation may be underestimated due to eccentricity of the jet. Pericardium/Pleural There is no pericardial effusion. Inferior Vena Cava Normal inferior vena cava with >50% collapse upon inspiration consistent with normal right atrial pressure, 3 mmHg. Aorta The aortic root size at the sinus of Valsalva is normal. Left Ventricular Outflow Tract
--- NOTE | 2024-01-01 15:37 | PM.CNCAR ---
History of Present Illness History of Present Illness Consult date/time: 01/01/24 15:37 Requesting physician: Sonia Hirsch MD Consult reason: congestive heart failure Reason For Visit: Elev Trop, CHF exac Narrative: Ramón Santana is a 33 year old male with nonischemic cardiomyopathy initially diagnosed in 2020, EF 19% by echocardiogram in June of this year. He previously followed with Dr. Swann at [facility] for his cardiology care but was most recently seen by Dr. Kong in May of 2022. He comes to the hospital with complaints of hemoptysis and lower extremity swelling. [facility] Past Medical History Medical History (Updated 01/01/24 @ 13:27 by Christiane Agosto APRN) CHF (congestive heart failure) Hypertension Prediabetes Family History Family History (Updated 06/11/22 @ 02:52 by Tami Zeng RN) Other Unknown family medical history Social History Social History Social History: denies use of drugs alcohol tobacco. Smoking status: Never smoker Alcohol intake: never Substance use: never Do You Feel Safe in your Home?: Yes Lack of Transportation: No Lack of Food: Never True Current Housing: I Have Housing Concerned About Future Housing: No Difficulty Paying Gas/Electric Bills: No Difficulty Paying for Meds: No Currently Unemployed: No Education: High School Diploma/GED Difficulty w/ Childcare or Family Care: No Spiritual care concerns: No Meds Home Medications and Allergies Home Medications Medication Instructions Recorded Confirmed Type bumetanide 1 mg tablet 1 mg PO BID 01/01/24 01/01/24 History sacubitril 24 mg-valsartan 26 mg 1 tablet PO BID 01/01/24 01/01/24 History tablet (Entresto) Allergies Allergy/AdvReac Type Severity Reaction Status Date / Time No Known Allergies Allergy Verified 01/01/24 06:42 Vital Signs Vital Signs - 24 hr 01/01/24 06:32 01/01/24 07:24 01/01/24 07:24 Temperature 36.8 C Pulse Rate 107 H 107 H Respiratory Rate 18 18 18 Blood Pressure 137/96 H 114/88 Pulse Oximetry 99 100 100 Oxygen Delivery Room Air 01/01/24 08:12 01/01/24 09:49 01/01/24 11:39 Temperature 36.7 C 36.8 C 36.7 C Pulse Rate 99 100 97 Respiratory Rate 20 20 20 Blood Pressure 125/89 120/77 110/87 Pulse Oximetry 100 98 100 Oxygen Delivery Results Labs and Meds 01/01/24 06:56 01/01/24 06:56 Lab results: Cardiac Enzymes 01/01/24 01/01/24 01/01/24 Range/Units 06:56 10:15 11:54 AST 36 (17-59) U/L Troponin I 0.322 H* 0.229 H* D 0.245 H* (0.000-0.034) ng/mL Coagulation 01/01/24 Range/Units 06:56 PT 16.0 H (11.1-14.7) Seconds APTT 28.1 (22.3-36.8) Seconds CBC 01/01/24 Range/Units 06:56 WBC 7.8 (4.5-10.0) K/mm3 RBC 5.68 (4.6-6.20) M/mm3 Hgb 15.3 (14.0-18.0) g/dL Hct 47.6 (42.0-52.0) % Plt Count 236 (150-375) k/mm3 Lymph # (Auto) 1.96 (0.9-3.2) K/mm3 Shannon # (Auto) 0.5 (0.1-0.6) K/mm3 Eos # (Auto) 0.1 (0-0.3) K/mm3 Baso # (Auto) 0.1 (0.0-0.1) K/mm3 Comprehensive Metabolic Panel 01/01/24 Range/Units 06:56 Sodium 135 L (137-145) mmol/L Potassium 3.5 (3.4-5.0) mmol/L Chloride 99 (98-107) mmol/L Carbon Dioxide 24 (22-30) mmol/L BUN 17 (9-20) mg/dL Creatinine 1.60 H (0.7-1.3) mg/dL Glucose 132 H (65-110) mg/dL Calcium 8.9 (8.4-10.2) mg/dL AST 36 (17-59) U/L ALT 40 (6-50) U/L Alkaline Phosphatase 106 (38-126) U/L Total Protein 7.0 (6.3-8.2) g/dL Albumin 3.9 (3.5-5.1) g/dL Intake and Output 12/31/23 01/01/24 01/01/24 23:59 07:59 15:59 Output Total 1700 Balance -1700 Output: Urine 1700 Other: # Unmeasured Voids 1 Patient Weight 01/01/24 23:59 Weight 104.9 kg
[2024-01-01] MEDS: PERFLUTREN LIPID MICROSPHERES 1.5 ML VIAL DILUTED TO 10 ML TOTAL VOLUME IV PUSH (15:56)
--- NOTE | 2024-01-01 15:56 | IVDEFINITY ---
Prior to administration of IV Definity the patient was educated on the risks and benefits of the imaging enhancing agent including potential adverse side effects. The patient verbalized understanding. Allergies were verified. No exclusion criteria were identified and at least one of the following inclusion criteria were met: 1) physician request, 2) patient technically difficult to image (per the [place] [employer] guidelines of two or more segments not discernable within the apical view), or 3) questionable left ventricular function. ?
[2024-01-01 18:00] LABS: Glucose Point of Care 109 mg/dl (65-105)
[2024-01-01] MEDS: BUMETANIDE INJ 1 MG/4 ML VIAL IV PUSH (18:22)
[2024-01-01] MEDS: APIXABAN 5 MG TABLET 10 MG PO (21:43)
[2024-01-01] MEDS: SACUBITRIL/VALSARTAN 24-26 MG TABLET 1 TAB PO (21:44)
[2024-01-02] VITALS (17 sets, daily range): BP systolic 97–118; BP diastolic 68–84; PULSE 88–116; RESP 14–18; TEMP 36.4–37.1; O2SAT 97–100
[2024-01-02 05:18] LABS: Basophils Absolute Auto 0.1 K/mm3 (0.0-0.1); Basophils Percent Auto 0.6 % (0.2-1.2); Eosinophils Percent Auto 0.5 % (0-4.4); Hematocrit 45.8 % (42.0-52.0); Hemoglobin 14.9 g/dL (14.0-18.0); Immature Granulocyte Absolute 0.02 K/mm3 (0.00-0.031); Immature Granulocyte Percent A 0.2 % (0-0.5); Lymphocytes Absolute Auto 1.76 K/mm3 (0.9-3.2); Lymphocytes Percent Auto 20.5 % (18.3-44.2); Mean Corpuscular HGB Conc 32.5 g/dl (32-36); Mean Corpuscular Hemoglobin 26.8 pg (26-34); Mean Corpuscular Volume 82.5 fl (80-100); Mean Platelet Volume 10.2 fl (7.4-10.4); Monocytes Absolute Auto 0.8 K/mm3 (0.1-0.6); Monocytes Percent Auto 8.8 % (2.6-8.5); Neutrophils Percent Auto 69.4 % (45.5-73.1); Platelet Count Result 215 k/mm3 (150-375); Red Blood Count 5.55 M/mm3 (4.6-6.20); Red Cell Distribution Width 15.6 % (11.5-14.5); White Blood Count 8.6 K/mm3 (4.5-10.0)
[2024-01-02 05:29] LABS: Alanine Aminotransferase 36 U/L (6-50); Albumin Level 3.6 g/dL (3.5-5.1); Alkaline Phosphatase 105 U/L (38-126); Anion Gap 12 mmol/L (4-12); Aspartate Amino Transferase 34 U/L (17-59); Bilirubin,Total 2.7 mg/dL (0.2-1.3); Blood Urea Nitrogen 19 mg/dL (9-20); Calcium 8.7 mg/dL (8.4-10.2); Carbon Dioxide 25 mmol/L (22-30); Chloride 99 mmol/L (98-107); Estimated CRCL calculation 73 ml/min; Estimated Glomerular Filt Rate > 60; Glucose 89 mg/dL (65-110); Potassium 3.6 mmol/L (3.4-5.0); Sodium 136 mmol/L (137-145)
[2024-01-02] MEDS: APIXABAN 5 MG TABLET 10 MG PO ×2 (09:04→20:10)
[2024-01-02] MEDS: BUMETANIDE INJ 1 MG/4 ML VIAL IV PUSH ×2 (09:04→17:38)
[2024-01-02] MEDS: SACUBITRIL/VALSARTAN 24-26 MG TABLET 1 TAB PO ×2 (09:05→20:09)
--- NOTE | 2024-01-02 11:22 | PM.CNCAR ---
Assessment and Plan Assessment and plan (1) Acute on chronic heart failure with reduced ejection fraction (HFrEF, <= 40%): Code(s): I50.23 - Acute on chronic systolic (congestive) heart failure Status: Acute Assessment and Plan: Continue IV Bumex for now. May be able to transition to PO tomorrow. Please monitor strict I/Os. Continue Entresto 24/26mg BID. Will start Spironolactone 25mg once daily, Toprol 25mg once daily, Jardiance 10mg once daily. Patient to follow up with his primary cardiology team at [place]. Discussed with the patient regarding the importance of following up with his cardiology team. (2) LV (left ventricular) mural thrombus: Code(s): I51.3 - Intracardiac thrombosis, not elsewhere classified Status: Acute Assessment and Plan: Patient does recall being told he had LV thrombus back in June 2023, and he had been started on Eliquis at that time, however, he thought he was only supposed to take the Eliquis for 7 days, so he stopped taking it after the 7 days. We have restarted Eliquis here. I discussed with the patient that he should be taking Eliquis for at least 3 months, and he will need repeat imaging to assess for resolution of the thrombus. He expressed understanding. 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 (3) Hypertension: Qualifiers: Hypertension type: primary hypertension Qualified Code(s): I10 - Essential (primary) hypertension Code(s): I10 - Essential (primary) hypertension Status: Chronic Assessment and Plan: As above. Plan Recommendations and plan discussed with Hospitalist. History of Present Illness History of Present Illness Consult date/time: 01/02/24 11:22 Requesting physician: Christiane Agosto APRN Consult reason: congestive heart failure Reason For Visit: Elev Trop, CHF exac Narrative: This is a 33 year old male with known history of non-ischemic cardiomyopathy, chronic heart failure with reduced LVEF, LV thrombus diagnosed initially in June 2023 who presented with worsening lower extremity edema, cough. Patient used to see [facility], but has not seen them in a while. Troponins are 0.322, 0.229, 0.245. CXR with clear lungs. EKG with sinus tachycardia, left atrial enlargement, LBBB. Patient started on IV Bumex and has bee diuresing well. Echocardiogram this admission shows severely enlarged LV with LVEF <15%, grade III diastolic dysfunction, LV thrombus noted on the mid interventricular septum, measures 2.5 cm x 0.9 cm. LV laminar apical thrombus noted as well. Right ventricular systolic function is reduced. Moderate biatrial enlargement. Mild-moderate MR. Moderate-severe TR. Mild-moderate MO. Of note, I did discuss findings of LV thrombus with the patient. He does recall being told he had LV thrombus back in June 2023 as well, and he had been started on Eliquis at that time, however, he thought he was only supposed to take the Eliquis for 7 days, so he stopped taking it after the 7 days. He reports he had been on Spironolactone, Jardiance, Toprol in the past, but he didn't know if that was in combination with Entresto or replaced Entresto, so stopped those medications a few months ago. Currently only takes Bumex 1mg BID and Entresto at home. Transthoracic echocardiogram 07/05/2023 at [place] showed: Markedly dilated LV (LVEDD 8.0cm) with eccentric LVH and severe global hypokinesis with inferior / inferoseptal akinesis. LVEF 19%. There is a laminar apical thrombus measuring 4.1 cm x 0.8 cm. Grade 3 diastolic dysfunction. Normal RV size with mild global hypokinesis. Moderate LAE, mild ALEJANDRA. Mild MR. Moderate MO. Eccentric, laterally directed TR jet, may be moderate severity based on intensity of Doppler profile and eccentricity of jet. Prior records from [place] personally reviewed. OSH records from [place] were personally reviewed as well. Review of Systems Review of Systems: All systems reviewed & are unre
[2024-01-02] MEDS: METOPROLOL SUCCINATE EXT REL 25 MG TABCR PO (12:13)
[2024-01-02] MEDS: SPIRONOLACTONE 25 MG TABLET PO (12:14)
[2024-01-02] MEDS: EMPAGLIFLOZIN 10 MG TABLET PO (12:14)
--- NOTE | 2024-01-02 13:55 | PM.IMPN ---
Progress Note: A&P Assessment and Plan (1) Acute exacerbation of CHF (congestive heart failure): Qualifiers: Heart failure type: combined systolic and diastolic Qualified Code(s): I50.43 - Acute on chronic combined systolic (congestive) and diastolic (congestive) heart failure Code(s): I50.9 - Heart failure, unspecified Status: Acute Assessment and Plan: - BNP 4150 - most recent echo (05/2022): Severe ventricular enlargement, severe global hypokinesis see a, estimated EF 10-15%, grade 2 diastolic dysfunction present. See report for further details. - update echo - currently on: Bumex 1 mg b.i.d., hold PO and continue as 1 mg b.i.d. IVP. - troponin: 0.322 -> 0.229 -> 0.245. flat, likely secondary to volume overload and no active chest pain. - continue to diuresis with IV and dC giancarlo - cardiology MD has adjusted meds (2) Hemoptysis: Code(s): R04.2 - Hemoptysis Status: Acute Assessment and Plan: - CXR: Clear lungs. Stable cardiomegaly. - NM - shows Intermediate probability for pulmonary embolism. (3) APRIL (acute kidney injury): Code(s): N17.9 - Acute kidney failure, unspecified Status: Acute Assessment and Plan: - creatinine 1.6 and GFR 60 (previously 1.2 and GFR >60 on 06/12/2022) - continue to diuresis watch bmp (4) Hypertension: Qualifiers: Hypertension type: primary hypertension Qualified Code(s): I10 - Essential (primary) hypertension Code(s): I10 - Essential (primary) hypertension Status: Chronic Assessment and Plan: - chronic, currently 110/87 - continue home medications: Entresto 24-26 mg b.i.d. Subjective Date/time seen: 01/02/24 13:55 Interval history: 33 y/o M presents here with bilateral lower extremity swelling and hemoptysis with PMH of CHF and hypertension. The patient presents here from home via EMS for further evaluation of bilateral lower extremity swelling and hemoptysis. Patient has a known history of congestive heart failure with last documented EF of 10-15% in May. Unclear etiology for patient's HF, reports he has had LE swelling since he was a teen. He reports he has been experiencing worsening bilateral lower extremity swelling for the past 2 months. Endorsing intermittent labored breathing and worsens occasionally when he lasts flat. Patient follows with [facility] for his cardiac care, last saw them approximately 1 year ago. Patient is currently on Bumex and Entresto, reports compliance with medications. Due to development of hemoptysis approximately 2-3 days ago, patient sought care today. Patient describes the hemoptysis as clear with blood clots Pt can continue to diuresis with IV today and dc giancarlo as per cardiology MD Review of Systems Review of Systems: Leg swelling no other complaints Objective Data Vital Signs Vital Signs: Vital Signs - 24 hr 01/01/24 16:00 01/01/24 14:00 01/01/24 16:00 Temperature 36.9 C Pulse Rate 101 H 104 H 105 H Respiratory Rate 14 Blood Pressure 115/77 Pulse Oximetry 100 Oxygen Delivery 01/01/24 18:00 01/01/24 16:00 01/01/24 20:57 Temperature 36.6 C Pulse Rate 109 H 103 H Respiratory Rate 14 Blood Pressure 130/87 Pulse Oximetry 92 Oxygen Delivery Room Air 01/01/24 20:00 01/02/24 00:15 01/01/24 20:00 Temperature 36.6 C Pulse Rate 94 102 H Respiratory Rate 14 Blood Pressure 118/78 Pulse Oximetry 100 Oxygen Delivery Room Air 01/01/24 22:00 01/02/24 00:00 01/02/24 00:00 Temperature Pulse Rate 98 96 Respiratory Rate Blood Pressure Pulse Oximetry Oxygen Delivery Room Air 01/02/24 02:00 01/02/24 04:00 01/02/24 04:00 Temperature Pulse Rate 94 89 Respiratory Rate Blood Pressure Pulse Oximetry Oxygen Delivery Room Air 01/02/24 04:28 01/02/24 06:00 01/02/24 07:23 Temperature 37.1 C 36.6 C Pulse Rate 88 88 96 Respiratory Rate 1
[2024-01-03] VITALS (17 sets, daily range): BP systolic 99–125; BP diastolic 65–87; PULSE 66–103; RESP 16–20; TEMP 36.4–36.8; O2SAT 97–100
[2024-01-03 05:55] LABS: Hematocrit 47.7 % (42.0-52.0); Hemoglobin 15.3 g/dL (14.0-18.0); Mean Corpuscular HGB Conc 32.1 g/dl (32-36); Mean Corpuscular Hemoglobin 26.6 pg (26-34); Mean Corpuscular Volume 82.8 fl (80-100); Mean Platelet Volume 10.3 fl (7.4-10.4); Platelet Count Result 231 k/mm3 (150-375); Red Blood Count 5.76 M/mm3 (4.6-6.20); Red Cell Distribution Width 15.6 % (11.5-14.5); White Blood Count 10.3 K/mm3 (4.5-10.0)
[2024-01-03 06:07] LABS: Anion Gap 12 mmol/L (4-12); Blood Urea Nitrogen 21 mg/dL (9-20); Calcium 8.6 mg/dL (8.4-10.2); Carbon Dioxide 24 mmol/L (22-30); Chloride 96 mmol/L (98-107); Estimated CRCL calculation 74 ml/min; Estimated Glomerular Filt Rate > 60; Glucose 88 mg/dL (65-110); Potassium 3.5 mmol/L (3.4-5.0); Sodium 132 mmol/L (137-145)
[2024-01-03] MEDS: APIXABAN 5 MG TABLET 10 MG PO ×2 (08:36→20:15)
[2024-01-03] MEDS: SACUBITRIL/VALSARTAN 24-26 MG TABLET 1 TAB PO ×2 (08:36→20:15)
[2024-01-03] MEDS: EMPAGLIFLOZIN 10 MG TABLET PO (08:37)
[2024-01-03] MEDS: SPIRONOLACTONE 25 MG TABLET PO (08:38)
[2024-01-03] MEDS: METOPROLOL SUCCINATE EXT REL 25 MG TABCR PO ×2 (08:38→12:39)
[2024-01-03] MEDS: BUMETANIDE INJ 1 MG/4 ML VIAL IV PUSH ×2 (08:53→17:20)
--- NOTE | 2024-01-03 09:45 | PM.PNCARD ---
Progress Note: A&P Assessment and Plan (1) Acute on chronic heart failure with reduced ejection fraction (HFrEF, <= 40%): Code(s): I50.23 - Acute on chronic systolic (congestive) heart failure Status: Acute Assessment and Plan: Continue IV Bumex for now. May be able to transition to PO tomorrow. Please monitor strict I/Os. Continue Entresto 24/26mg BID. Started Spironolactone 25mg once daily, Toprol 25mg once daily, Jardiance 10mg once daily. Tolerating GDMT well. Will increase Toprol to 50mg once daily. Patient to follow up with his primary cardiology team at [place]. Discussed with the patient regarding the importance of following up with his cardiology team. (2) LV (left ventricular) mural thrombus: Code(s): I51.3 - Intracardiac thrombosis, not elsewhere classified Status: Acute Assessment and Plan: Patient does recall being told he had LV thrombus back in June 2023, and he had been started on Eliquis at that time, however, he thought he was only supposed to take the Eliquis for 7 days, so he stopped taking it after the 7 days. We have restarted Eliquis here. I discussed with the patient that he should be taking Eliquis for at least 3 months, and he will need repeat imaging to assess for resolution of the thrombus. He expressed understanding. 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 (3) Hypertension: Qualifiers: Hypertension type: primary hypertension Qualified Code(s): I10 - Essential (primary) hypertension Code(s): I10 - Essential (primary) hypertension Status: Chronic Assessment and Plan: As above. (4) NSVT (nonsustained ventricular tachycardia): Code(s): I47.29 - Other ventricular tachycardia Status: Acute Assessment and Plan: Noted on tele. Asymptomatic. Keep electrolytes optimized. Will increase Toprol to 50mg once daily. Plan Anticipate discharge home tomorrow. Recommendations and plan discussed with Hospitalist. Subjective Date/time seen: 01/03/24 09:45 Interval history: Reason for visit: Acute on chronic HFrEF HPI: This is a 33 year old male with known history of non-ischemic cardiomyopathy, chronic heart failure with reduced LVEF, LV thrombus diagnosed initially in June 2023 who presented with worsening lower extremity edema, cough. Patient used to see [facility], but has not seen them in a while. Troponins are 0.322, 0.229, 0.245. CXR with clear lungs. EKG with sinus tachycardia, left atrial enlargement, LBBB. Patient started on IV Bumex and has bee diuresing well. Echocardiogram this admission shows severely enlarged LV with LVEF <15%, grade III diastolic dysfunction, LV thrombus noted on the mid interventricular septum, measures 2.5 cm x 0.9 cm. LV laminar apical thrombus noted as well. Right ventricular systolic function is reduced. Moderate biatrial enlargement. Mild-moderate MR. Moderate-severe TR. Mild-moderate OK. Of note, I did discuss findings of LV thrombus with the patient. He does recall being told he had LV thrombus back in June 2023 as well, and he had been started on Eliquis at that time, however, he thought he was only supposed to take the Eliquis for 7 days, so he stopped taking it after the 7 days. He reports he had been on Spironolactone, Jardiance, Toprol in the past, but he didn't know if that was in combination with Entresto or replaced Entresto, so stopped those medications a few months ago. Currently only takes Bumex 1mg BID and Entresto at home. Transthoracic echocardiogram 07/05/2023 at [place] showed: Markedly dilated LV (LVEDD 8.0cm) with eccentric LVH and severe global hypokinesis with inferior / inferoseptal akinesis. LVEF 19%. There is a laminar apical thrombus measuring 4.1 cm x 0.8 cm. Grade 3 diastolic dysfunction. Normal RV size with mild global hypokinesis. Moderate LAE, mild ALEJANDRA. Mild MR. Moderate OK. Eccentric, laterally directed TR jet, may be moderate severity based on in
--- NOTE | 2024-01-03 14:31 | PM.IMPN ---
Progress Note: A&P Assessment and Plan (1) Acute exacerbation of CHF (congestive heart failure): Qualifiers: Heart failure type: combined systolic and diastolic Qualified Code(s): I50.43 - Acute on chronic combined systolic (congestive) and diastolic (congestive) heart failure Code(s): I50.9 - Heart failure, unspecified Status: Acute Assessment and Plan: - BNP 4150 - most recent echo (05/2022): Severe ventricular enlargement, severe global hypokinesis see a, estimated EF 10-15%, grade 2 diastolic dysfunction present. See report for further details. - update echo - currently on: Bumex 1 mg b.i.d., hold PO and continue as 1 mg b.i.d. IVP. - troponin: 0.322 -> 0.229 -> 0.245. flat, likely secondary to volume overload and no active chest pain. - continue to diuresis with IV and dC sunday - watch BMP - cardiology MD has adjusted meds (2) Hemoptysis: Code(s): R04.2 - Hemoptysis Status: Acute Assessment and Plan: - CXR: Clear lungs. Stable cardiomegaly. - NM - shows Intermediate probability for pulmonary embolism. (3) APRIL (acute kidney injury): Code(s): N17.9 - Acute kidney failure, unspecified Status: Acute Assessment and Plan: - creatinine 1.6 and GFR 60 (previously 1.2 and GFR >60 on 06/12/2022) - continue to diuresis watch bmp (4) Hypertension: Qualifiers: Hypertension type: primary hypertension Qualified Code(s): I10 - Essential (primary) hypertension Code(s): I10 - Essential (primary) hypertension Status: Chronic Assessment and Plan: - chronic, currently 110/87 - continue home medications: Entresto 24-26 mg b.i.d. Subjective Date/time seen: 01/03/24 14:31 Interval history: 33 y/o M presents here with bilateral lower extremity swelling and hemoptysis with PMH of CHF and hypertension. The patient presents here from home via EMS for further evaluation of bilateral lower extremity swelling and hemoptysis. Patient has a known history of congestive heart failure with last documented EF of 10-15% in May. Unclear etiology for patient's HF, reports he has had LE swelling since he was a teen. He reports he has been experiencing worsening bilateral lower extremity swelling for the past 2 months. Endorsing intermittent labored breathing and worsens occasionally when he lasts flat. Patient follows with [facility] for his cardiac care, last saw them approximately 1 year ago. Patient is currently on Bumex and Entresto, reports compliance with medications. Due to development of hemoptysis approximately 2-3 days ago, patient sought care today. Patient describes the hemoptysis as clear with blood clots Pt can continue to diuresis with IV today and dc sunday Pt still having some peripheral edema Review of Systems Review of Systems: leg edema bilteral Exam Narrative: AA, 1+ pitting edema to ankles and calves, symmetric. lungs clear. Const: General: comfortable and no acute distress Other: , male, nontoxic appearance HENMT: Face/Nose/Sinus: Normal nares present Mouth: Yes moist mucous membranes Eyes: General: appearance normal, both eyes and all related structures Sclera: sclerae normal Pupils: Equal, round and reactive pupils present EOM: EOMs intact bilaterally Resp: Effort & Inspection: normal respiratory effort Auscultation: clear to auscultation bilaterally Cardio: Rate: regular rate Rhythm: regular rhythm Other: +murmur Skin: General skin exam: normal color and no rashes or lesions noted Wounds: no wounds Neuro: General: gait normal Cranial nerves: Yes Equal, round and reactive pupils present Speech: normal speech Motor exam (neuro): 5/5 motor strength present throughout Sensory Exam: normal sensation Other: A&O x4 Extrem: General: edema Other: 1+ pitting edema to ankles and calves, symmetric. Psych: Mental Status: mental s
[2024-01-04] VITALS (15 sets, daily range): BP systolic 100–112; BP diastolic 64–75; PULSE 61–87; RESP 12–17; TEMP 36–36.6; O2SAT 95–100
[2024-01-04 05:42] LABS: Anion Gap 11 mmol/L (4-12); Blood Urea Nitrogen 26 mg/dL (9-20); Calcium 8.5 mg/dL (8.4-10.2); Carbon Dioxide 26 mmol/L (22-30); Chloride 95 mmol/L (98-107); Estimated CRCL calculation 69 ml/min; Estimated Glomerular Filt Rate 60; Glucose 80 mg/dL (65-110); Potassium 3.9 mmol/L (3.4-5.0); Sodium 132 mmol/L (137-145)
[2024-01-04] MEDS: APIXABAN 5 MG TABLET 10 MG PO ×2 (09:58→21:37)
[2024-01-04] MEDS: METOPROLOL SUCCINATE EXT REL 50 MG TABCR PO (09:58)
[2024-01-04] MEDS: SPIRONOLACTONE 25 MG TABLET PO (09:59)
[2024-01-04] MEDS: EMPAGLIFLOZIN 10 MG TABLET PO (09:59)
[2024-01-04] MEDS: SACUBITRIL/VALSARTAN 24-26 MG TABLET 1 TAB PO ×2 (09:59→21:37)
--- NOTE | 2024-01-04 10:01 | PM.PNCARD ---
Progress Note: A&P Assessment and Plan (1) Acute on chronic heart failure with reduced ejection fraction (HFrEF, <= 40%): Code(s): I50.23 - Acute on chronic systolic (congestive) heart failure Status: Acute Assessment and Plan: Improving. Transition to PO bumex today. Please monitor strict I/Os. Continue Entresto 24/26mg BID. Continue Spironolactone 25mg once daily, Toprol 50mg once daily, Jardiance 10mg once daily. Tolerating GDMT well. Patient to follow up with his primary cardiology team at [facility]. Discussed with the patient regarding the importance of following up with his cardiology team. (2) LV (left ventricular) mural thrombus: Code(s): I51.3 - Intracardiac thrombosis, not elsewhere classified Status: Acute Assessment and Plan: Continue Eliquis 5mg b.i.d. Will need a follow up TTE in 3 months. (3) Hypertension: Qualifiers: Hypertension type: primary hypertension Qualified Code(s): I10 - Essential (primary) hypertension Code(s): I10 - Essential (primary) hypertension Status: Chronic Assessment and Plan: As above. (4) NSVT (nonsustained ventricular tachycardia): Code(s): I47.29 - Other ventricular tachycardia Status: Acute Assessment and Plan: Noted on tele. Asymptomatic. Keep electrolytes optimized. Continue Toprol to 50mg once daily. Subjective Date/time seen: 01/04/24 10:01 Interval history: Reason for visit: Acute on chronic HFrEF HPI: This is a 33 year old male with known history of non-ischemic cardiomyopathy, chronic heart failure with reduced LVEF, LV thrombus diagnosed initially in June 2023 who presented with worsening lower extremity edema, cough. Patient used to see [facility], but has not seen them in a while. Troponins are 0.322, 0.229, 0.245. CXR with clear lungs. EKG with sinus tachycardia, left atrial enlargement, LBBB. Patient started on IV Bumex and has bee diuresing well. Echocardiogram this admission shows severely enlarged LV with LVEF <15%, grade III diastolic dysfunction, LV thrombus noted on the mid interventricular septum, measures 2.5 cm x 0.9 cm. LV laminar apical thrombus noted as well. Right ventricular systolic function is reduced. Moderate biatrial enlargement. Mild-moderate MR. Moderate-severe TR. Mild-moderate LA. Of note, I did discuss findings of LV thrombus with the patient. He does recall being told he had LV thrombus back in June 2023 as well, and he had been started on Eliquis at that time, however, he thought he was only supposed to take the Eliquis for 7 days, so he stopped taking it after the 7 days. He reports he had been on Spironolactone, Jardiance, Toprol in the past, but he didn't know if that was in combination with Entresto or replaced Entresto, so stopped those medications a few months ago. Currently only takes Bumex 1mg BID and Entresto at home. Transthoracic echocardiogram 07/05/2023 at [facility] showed: Markedly dilated LV (LVEDD 8.0cm) with eccentric LVH and severe global hypokinesis with inferior / inferoseptal akinesis. LVEF 19%. There is a laminar apical thrombus measuring 4.1 cm x 0.8 cm. Grade 3 diastolic dysfunction. Normal RV size with mild global hypokinesis. Moderate LAE, mild ALEJANDRA. Mild MR. Moderate LA. Eccentric, laterally directed TR jet, may be moderate severity based on intensity of Doppler profile and eccentricity of jet. Prior records from [facility] personally reviewed. OSH records from [facility] were personally reviewed as well. Date of service 01/03/2024: Still with lower extremity edema, but it is improving. Tele with NSVT overnight. Date of service 01/04/2024: Lower extremity edema continues to improve. No shortness of breath, orthopnea, palpitations, chest pain. Review of Systems Review of Systems: All systems reviewed & are unremarkable except as noted in HPI and below (HPI) Exam Const: General: comfortable and no acute distress HENMT: Mouth: Yes m
[2024-01-04] MEDS: BUMETANIDE INJ 1 MG/4 ML VIAL IV PUSH (10:02)
--- NOTE | 2024-01-04 15:24 | PM.IMPN ---
Progress Note: A&P Assessment and Plan (1) Acute exacerbation of CHF (congestive heart failure): Qualifiers: Heart failure type: combined systolic and diastolic Qualified Code(s): I50.43 - Acute on chronic combined systolic (congestive) and diastolic (congestive) heart failure Code(s): I50.9 - Heart failure, unspecified Status: Acute (2) Hemoptysis: Code(s): R04.2 - Hemoptysis Status: Acute (3) APRIL (acute kidney injury): Code(s): N17.9 - Acute kidney failure, unspecified Status: Acute (4) Hypertension: Qualifiers: Hypertension type: primary hypertension Qualified Code(s): I10 - Essential (primary) hypertension Code(s): I10 - Essential (primary) hypertension Status: Chronic Plan 33-year-old male who presented with increasing lower extremity edema shortness of breath and hemoptysis. Underlying history of congestive heart failure with ejection fraction of 10-15%. LV thrombus June 2023. On ED evaluation he was mildly tachycardic EKG with sinus tachycardia. Laboratory evaluation showed normal WBC and hemoglobin creatinine of 1.6 BNP 4150. Troponin was elevated at 0.322. Serial troponin [id number]. Chest x-ray with clear lungs. Cardiology was consulted. Patient was started on IV Bumex. Echocardiogram this admission showed LVEF less than 15% grade 3 diastolic dysfunction LV thrombus noted in the mid interventricular septum measures 2.5 cm x 0.9 cm. LV laminar apical thrombus noted as well. Moderate biatrial enlargement. Cdxd-iw-ikwswdku MR moderate to severe TR [id number] IN. Eliquis which she was supposed to continue however had stopped. NM lung scan shows intermediate probability for PE. Patient's symptoms continues to improve and has been transition to oral Bumex. Continued on Entresto spironolactone Toprol Jardiance for goal-directed medical therapy. Hypertension Nonsustained ventricular tachycardia CKD stage 3 creatinine 1.6 continue to monitor with diuresis Code status full code Subjective Date/time seen: 01/04/24 15:24 Interval history: Feels better. Denies any cough or hemoptysis. Leg swelling still persists. No chest pain. Review of Systems Review of Systems: All systems reviewed & are unremarkable except as noted in HPI and below Exam Narrative: GENERAL:[No acute distress, non-toxic appearing.] HEAD: Normal with no signs of head trauma. EYES: EOMI, conjunctiva normal ENT: Hearing grossly intact LUNGS: Nonlabored breathing. Clear to auscultation HEART: [Regular rate and rhythm] ABD: [Soft], slightly distended EXT: Normal range of motion, bilateral pitting lower extremity edema up to mid roberts SKIN: [No rashes or lesions.] NEURO: [Alert and oriented x 3. No gross focal sensory or strength deficits.] PSYCH: Normal affect Objective Data Vital Signs Vital Signs: Vital Signs - 24 hr 01/03/24 16:00 01/03/24 16:00 01/03/24 16:00 Temperature 97.9 F Pulse Rate 91 89 Respiratory Rate 16 Blood Pressure 100/69 Pulse Oximetry 97 Oxygen Delivery Room Air 01/03/24 18:00 01/03/24 19:44 01/03/24 20:00 Temperature 97.9 F Pulse Rate 101 H 92 Respiratory Rate 16 Blood Pressure 104/69 Pulse Oximetry 100 Oxygen Delivery Room Air 01/04/24 00:00 01/03/24 20:00 01/03/24 22:00 Temperature Pulse Rate 90 88 Respiratory Rate Blood Pressure Pulse Oximetry Oxygen Delivery Room Air 01/04/24 00:00 01/04/24 00:00 01/04/24 02:00 Temperature 96.8 F L Pulse Rate 61 87 85 Respiratory Rate 16 Blood Pressure 108/68 Pulse Oximetry 100 Oxygen Delivery 01/04/24 04:00 01/04/24 04:00 01/04/24 04:00 Temperature 97.1 F L Pulse Rate 71 70 Respiratory Rate 15 Blood Pressure 104/64 Pulse Oximetry 100 Oxygen Delivery Room Air 01/04/24 06:00 01/04/24 07:39 01/04/24 09:58 Temperature 97.7 F Pulse Rate 72 74 74 Respiratory Rate 16 Blood Press
[2024-01-04] MEDS: BUMETANIDE 1 MG TABLET PO (17:31)
--- NOTE | 2024-01-04 18:01 | PC.NURSE ---
This patient, Ramón Santana, was transferred to [facility] via wheelchair on 01/04/24 at 1755. Personal belongings sent with patient. Report given to John Melvin. Appropriate documentation sent with patient.
[2024-01-05] VITALS (8 sets, daily range): BP systolic 90–100; BP diastolic 66–69; PULSE 62–72; RESP 16–18; TEMP 36.4–36.8; O2SAT 95–98
[2024-01-05 05:21] LABS: Basophils Percent Auto 0.5 % (0.2-1.2); Eosinophils Absolute Auto 0.1 K/mm3 (0-0.3); Eosinophils Percent Auto 0.8 % (0-4.4); Hematocrit 50.1 % (42.0-52.0); Hemoglobin 16.1 g/dL (14.0-18.0); Immature Granulocyte Absolute 0.03 K/mm3 (0.00-0.031); Immature Granulocyte Percent A 0.4 % (0-0.5); Lymphocytes Percent Auto 20.9 % (18.3-44.2); Mean Corpuscular HGB Conc 32.1 g/dl (32-36); Mean Corpuscular Hemoglobin 26.7 pg (26-34); Mean Corpuscular Volume 83.1 fl (80-100); Mean Platelet Volume 10.3 fl (7.4-10.4); Monocytes Absolute Auto 0.9 K/mm3 (0.1-0.6); Neutrophils Percent Auto 65.4 % (45.5-73.1); Platelet Count Result 254 k/mm3 (150-375); Red Blood Count 6.03 M/mm3 (4.6-6.20); Red Cell Distribution Width 15.9 % (11.5-14.5); White Blood Count 7.7 K/mm3 (4.5-10.0)
[2024-01-05 05:37] LABS: Alanine Aminotransferase 28 U/L (6-50); Albumin Level 3.3 g/dL (3.5-5.1); Alkaline Phosphatase 97 U/L (38-126); Anion Gap 13 mmol/L (4-12); Aspartate Amino Transferase 34 U/L (17-59); Bilirubin,Total 2.7 mg/dL (0.2-1.3); Blood Urea Nitrogen 29 mg/dL (9-20); Calcium 8.3 mg/dL (8.4-10.2); Carbon Dioxide 25 mmol/L (22-30); Chloride 94 mmol/L (98-107); Estimated CRCL calculation 69 ml/min; Estimated Glomerular Filt Rate 60; Glucose 65 mg/dL (65-110); Magnesium 2.3 mg/dL (1.6-2.3); Potassium 3.7 mmol/L (3.4-5.0); Sodium 132 mmol/L (137-145)
[2024-01-05] MEDS: BUMETANIDE 1 MG TABLET PO ×2 (08:24→16:15)
[2024-01-05] MEDS: APIXABAN 5 MG TABLET 10 MG PO ×2 (08:25→16:35)
[2024-01-05] MEDS: METOPROLOL SUCCINATE EXT REL 50 MG TABCR PO (08:25)
[2024-01-05] MEDS: EMPAGLIFLOZIN 10 MG TABLET PO (08:25)
[2024-01-05] MEDS: SPIRONOLACTONE 25 MG TABLET PO (08:25)
[2024-01-05] MEDS: SACUBITRIL/VALSARTAN 24-26 MG TABLET 1 TAB PO ×2 (08:25→16:34)
--- NOTE | 2024-01-05 09:48 | PM.DS ---
DS: Admitting Diagnosis Discharge Date 01/05/2024 Admitting Diagnosis Shortness of breath DS: Discharge Diagnosis Discharge Diagnosis (1) Acute exacerbation of CHF (congestive heart failure): Qualifiers: Heart failure type: combined systolic and diastolic Qualified Code(s): I50.43 - Acute on chronic combined systolic (congestive) and diastolic (congestive) heart failure Code(s): I50.9 - Heart failure, unspecified Status: Acute (2) Hemoptysis: Code(s): R04.2 - Hemoptysis Status: Acute (3) APRIL (acute kidney injury): Code(s): N17.9 - Acute kidney failure, unspecified Status: Acute (4) Hypertension: Qualifiers: Hypertension type: primary hypertension Qualified Code(s): I10 - Essential (primary) hypertension Code(s): I10 - Essential (primary) hypertension Status: Chronic DS: Summary Hospital Course Hospital Course: 33-year-old male who presented with increasing lower extremity edema shortness of breath and hemoptysis. Underlying history of congestive heart failure with ejection fraction of 10-15%. LV thrombus June 2023. On ED evaluation he was mildly tachycardic EKG with sinus tachycardia. Laboratory evaluation showed normal WBC and hemoglobin creatinine of 1.6 BNP 4150. Troponin was elevated at 0.322. Serial troponin [id number]. Chest x-ray with clear lungs. Cardiology was consulted. Patient was started on IV Bumex. Echocardiogram this admission showed LVEF less than 15% grade 3 diastolic dysfunction LV thrombus noted in the mid interventricular septum measures 2.5 cm x 0.9 cm. LV laminar apical thrombus noted as well. Moderate biatrial enlargement. Hqll-it-qcvjmoyn MR moderate to severe TR skuz-ks-qwofypsm MA. Eliquis which she was supposed to continue however had stopped. NM lung scan shows intermediate probability for PE. Patient's symptoms continues to improve and has been transition to oral Bumex. Continued on Entresto spironolactone Toprol Jardiance for goal-directed medical therapy. 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 Hypertension Nonsustained ventricular tachycardia CKD stage 3 creatinine 1.6 continue to monitor with diuresis. This remains stable. Code status full code Time Spent with Patient Time attestation: Total time spent providing and/or coordinating discharge services: 45 minutes Exam Narrative: GENERAL:[No acute distress, non-toxic appearing.] HEAD: Normal with no signs of head trauma. EYES: EOMI, conjunctiva normal ENT: Hearing grossly intact LUNGS: Nonlabored breathing. Clear to auscultation HEART: [Regular rate and rhythm] ABD: [Soft], slightly distended EXT: Normal range of motion, bilateral pitting lower extremity edema pedal SKIN: [No rashes or lesions.] NEURO: [Alert and oriented x 3. No gross focal sensory or strength deficits.] PSYCH: Normal affect DS: Data Data Completed and Pending Completed studies during hospitalization: Exam Type: CA echo dop color flow w con Study Info Indications I50.20 - Unspecified systolic (congestive) heart failure - Elevated Troponins Complete two-dimensional, color flow and Doppler transthoracic echocardiogram is performed with contrast to opacify the left ventricle and to improve the deliniation of the left ventricle endocardial borders. Contrast/Agitated Saline Contrast/Ag. Saline: Definity Amount: 5.00 ml Existing IV Access: Yes IV Access Condition: patent with no signs of infiltration Summary 1. Left ventricular chamber dimension is severely enlarged. 2. Left ventricular systolic function is severely reduced, estimated at <15%. 3. The left ventricular diastolic function is grade III diastolic dysfunction. 4. LV thrombus noted on the mid interventricular septum, measures 2.5cm x 0.9cm. LV laminar apical thrombus noted
--- NOTE | 2024-01-05 16:29 | PCCCNOTE ---
1629-Called to the room for assistance with transportation home. Pt is ambulatory so three bus tokens given in assistance to his home address.-misty.
== END 2024-01-05 16:45 | disposition home or self-care (01) | DRG 291 ==
LOC: ANHED 07:45 → ANHIMU 16:43 → ANH3MED 01-05 09:48 → ANHIMU 01-08 07:34
PROVIDERS: Emergency Medicine; Family Medicine; Student in an Organized Health Care Education/Training Program; Admitting Provider Internal Medicine; Emergency Provider Emergency Medicine; PCP Nurse Practitioner Family; Visit Provider Internal Medicine
DX: I11.0 Hypertensive heart disease with heart failure (principal); I50.43 Acute on chronic combined systolic (congestive) and diastolic (congestive) heart failure; R04.2 Hemoptysis; N17.9 Acute kidney failure, unspecified; I47.29 Other ventricular tachycardia; I42.8 Other cardiomyopathies; I51.3 Intracardiac thrombosis, not elsewhere classified; R73.03 Prediabetes; Z79.82 Long term (current) use of aspirin; Z86.73 Personal history of transient ischemic attack (TIA), and cerebral infarction without residual deficits
CPT/HCPCS: 36415; 71046; 78582; 80048; 80053; 82948; 83735; 83880; 84484; 85025; 85027; 85610; 85730; 93005; 99285; A9270; A9540; A9558; C8929; J1939; J1940; Q9957